=== PATIENT | male | born 1945 | race African-American/Black ===

== ENCOUNTER 2019-02-19 18:19 | Emergency (ER) | payer OTHER ==
[~2019-02-19] VITALS: Ht 175.3 cm; Wt 76.2 kg
[~2019-02-19 18:19] MED LIST: DOXA1TAB41 PO; LOSA-39 PO; OXYC-650 PO; PANC24002 PO
[2019-02-19 19:14] LABS: Basophils # (auto) 0.1 uL; Eosinophils # (auto) 0.3 uL; Eosinophils % (auto) 5.4 % (0.0-7.0); Hematocrit 45.2 % (41.0-53.0); Hemoglobin 15.3 g/dL (13.5-17.5); Lymphocytes # (auto) 1.6 uL; Lymphocytes % (auto) 26.8 % (10.0-50.0); Mean Corpuscular Hemoglobin 30.4 pg (28.0-32.0); Mean Corpuscular Hgb Conc. 33.8 g/dL (32.0-36.0); Monocytes # (auto) 0.4 uL; Monocytes % (auto) 6.4 % (0.0-12.0); Neutrophils # (auto) 3.6 uL; Neutrophils % (auto) 60.4 % (37.0-80.0); Nucleated Red Blood Cells % 0.2 %; Platelet Count (auto) 105 10^3/uL (140-450); Red Blood Cells 5.02 10^6/uL (4.5-5.90); Red Cell Distribution Width 14.2 % (11.8-14.3)
[2019-02-19 19:29] LABS: Albumin 3.9 g/dL (3.4-5.0); Calcium 9.6 mg/dL (8.5-10.1); Potassium 3.3 mmol/L (3.5-5.1)
[2019-02-19 19:32] LABS: BUN/Creatinine Ratio 16.4; Bilirubin, Total 0.4 mg/dL (0.2-1.0); Total Protein 7.6 g/dL (6.4-8.2)
[2019-02-19] MEDS ORDERED: SODIUM CHLORIDE 0.9% 1,000 ML IV ONE (22:15)
[2019-02-19] MEDS ORDERED: ONDANSETRON HCL 4 MG/2 ML VIAL IV ONE (22:15)
[2019-02-19] MEDS ORDERED: IOHEXOL 300 MG/ML 100ML BOTTLE IJ ONE (23:38)
[2019-02-20] MEDS ORDERED: HALOPERIDOL LACTATE 5 MG/ML INJ VIAL IM ONE (01:00)
[2019-02-20 02:25] VITALS: BP 159/93
== END 2019-02-20 02:54 | disposition home or self-care (01) ==
LOC: ER 18:21
DX: R11.15 Cyclical vomiting syndrome unrelated to migraine (principal); N40.0 Benign prostatic hyperplasia without lower urinary tract symptoms; N28.1 Cyst of kidney, acquired; R16.0 Hepatomegaly, not elsewhere classified; I10 Essential (primary) hypertension; Z90.49 Acquired absence of other specified parts of digestive tract; Z79.899 Other long term (current) drug therapy
CPT/HCPCS: 36415; 74177; 80053; 84484; 85025; 93005; 96361; 96374; 99284; J2405; J7030; Q9967

== ENCOUNTER 2019-05-23 08:32 | Emergency (ER) | payer OTHER ==
[~2019-05-23] VITALS: Ht 175.3 cm; Wt 76.2 kg
[2019-05-23 09:16] LABS: Urine Bacteria NONE SEEN /hpf (None Seen); Urine Blood Negative /uL (Negative); Urine Mucus FEW (None Seen); Urine WBC 1 /hpf (0 - 3)
[2019-05-23 09:30] LABS: Basophils # (auto) 0.1 uL; Basophils % (auto) 0.8 % (0.0-2.0); Eosinophils # (auto) 0 uL; Eosinophils % (auto) 0.6 % (0.0-7.0); Hematocrit 49.3 % (41.0-53.0); Hemoglobin 16.8 g/dL (13.5-17.5); Lymphocytes % (auto) 12.1 % (10.0-50.0); Mean Corpuscular Hemoglobin 30.1 pg (28.0-32.0); Mean Corpuscular Hgb Conc. 34.1 g/dL (32.0-36.0); Mean Corpuscular Volume 88.2 fL (80.0-100.0); Monocytes # (auto) 0.2 uL; Monocytes % (auto) 2.4 % (0.0-12.0); Neutrophils # (auto) 6.7 uL; Neutrophils % (auto) 84.1 % (37.0-80.0); Nucleated Red Blood Cells % 0.5 %; Platelet Count (auto) 130 10^3/uL (140-450); Red Blood Cells 5.59 10^6/uL (4.5-5.90); Red Cell Distribution Width 14.1 % (11.8-14.3); White Blood Cell 7.9 10^3/uL (4.4-10.8)
[2019-05-23 09:48] LABS: Albumin 3.7 g/dL (3.4-5.0); Anion Gap 9 (5-15); Blood Urea Nitrogen 13 mg/dL (7-18); Calcium 10.2 mg/dL (8.5-10.1); Carbon Dioxide 25 mmol/L (21-32); Chloride 104 mmol/L (98-107); Glucose 119 mg/dL (74-106); Potassium 3.5 mmol/L (3.5-5.1); Sodium 138 mmol/L (136-145)
[2019-05-23 09:53] LABS: Alanine Aminotransferase 83 U/L (16-61); Alkaline Phosphatase 119 U/L (45-117); Aspartate Aminotransferase 56 U/L (15-37); BUN/Creatinine Ratio 9.6; Bilirubin, Total 0.8 mg/dL (0.2-1.0); GFR African American 67 mL/min; GFR Non-African American 55 mL/min; Total Protein 8.5 g/dL (6.4-8.2)
[2019-05-23] MEDS ORDERED: cloNIDine HCL 0.1 MG TAB PO ONE (10:30)
[2019-05-23] MEDS ORDERED: KETOROLAC TROMETH 30 MG/ML 1ML VIAL IV ONE (12:15)
[2019-05-23] MEDS ORDERED: SODIUM CHLORIDE 0.9% 1,000 ML IV ONE (12:15)
[2019-05-23] MEDS ORDERED: TAMSULOSIN HYDROCHLORIDE 0.4 MG CAP PO ONE (12:15)
[2019-05-23 12:39] VITALS: BP 169/98
== END 2019-05-23 12:43 | disposition home or self-care (01) ==
LOC: ER 08:41
DX: N20.0 Calculus of kidney (principal); R10.13 Epigastric pain; I10 Essential (primary) hypertension
CPT/HCPCS: 36415; 71046; 74176; 80053; 81001; 84484; 85025; 93005; 96374; 99284; J1885; J7030

== ENCOUNTER 2019-10-23 08:36 | Inpatient (IN) | payer OTHER ==
[~2019-10-23] VITALS: Ht 205.7 cm; Wt 74.2 kg
[2019-10-23 10:35] LABS: Albumin 3.6 g/dL (3.4-5.0); Calcium 9.8 mg/dL (8.5-10.1); Potassium 3.1 mmol/L (3.5-5.1)
[2019-10-23 10:41] LABS: BUN/Creatinine Ratio 11.1; Bilirubin, Total 0.7 mg/dL (0.2-1.0); Total Protein 7.9 g/dL (6.4-8.2)
[2019-10-23] MEDS ORDERED: SODIUM CHLORIDE 0.9% 1,000 ML IVB ONE (11:37)
[2019-10-23] MEDS ORDERED: ONDANSETRON HCL 4 MG/2 ML VIAL IV ONE (11:45)
[2019-10-23 12:24] LABS: Basophils # (auto) 0 10 ^3/uL (0-0.2); Basophils % (auto) 0.7 % (0.0-2.0); Eosinophils # (auto) 0 10 ^3/uL (0-0.8); Eosinophils % (auto) 0.6 % (0.0-7.0); Hematocrit 44.4 % (41.0-53.0); Lymphocytes # (auto) 0.6 10 ^3/uL (0.4-5.4); Lymphocytes % (auto) 11.5 % (10.0-50.0); Mean Corpuscular Hemoglobin 29.6 pg (28.0-32.0); Mean Corpuscular Hgb Conc. 33.8 g/dL (32.0-36.0); Mean Corpuscular Volume 87.6 fL (80.0-100.0); Monocytes # (auto) 0.2 10 ^3/uL (0-1.3); Monocytes % (auto) 4.2 % (0.0-12.0); Neutrophils # (auto) 4.1 10 ^3/uL (1.6-8.6); Nucleated Red Blood Cells % 0.2 %; Platelet Count (auto) 153 10^3/uL (140-450); Red Blood Cells 5.08 10^6/uL (4.5-5.90); Red Cell Distribution Width 14.4 % (11.8-14.3)
[2019-10-23] MEDS ORDERED: MORPHINE SULF INJ 2 MG/ML SYRINGE 1ML IV ONE (12:30)
[2019-10-23] MEDS ORDERED: cefTRIAXone 1GM/50ML D5W 50 ML IV ONE (12:45)
[2019-10-23] MEDS ORDERED: metroNIDAZOLE 500MG/100ML 100 ML IV ONE (12:45)
[2019-10-23] MEDS: POTASSIUM CHL 20MEQ/100ML 100 ML IV SCH ×2 (14:05→16:39)
[2019-10-23] MEDS ORDERED: NITROGLYCERIN 0.4 MG SL TAB SL PRN (14:45)
[2019-10-23] MEDS ORDERED: MORPHINE SULF INJ 2 MG/ML SYRINGE 1ML IV PRN ×2 (14:45)
[2019-10-23] MEDS ORDERED: LABETALOL HCL 5 MG/ML 4ML SYRINGE IV PRN (14:45)
[2019-10-23] MEDS ORDERED: PROMETHAZINE HCL 25 MG/ML 1ML IV PRN (14:45)
[2019-10-23] MEDS ORDERED: DEXTROSE (50%) 50ML SYRG IV PRN (14:45)
[2019-10-23] MEDS: SODIUM CHLORIDE 0.9% 1,000 ML IV SCH ×2 (15:00→21:24)
[2019-10-23 17:47] VITALS: BP 176/93
[2019-10-23] MEDS: ACCU-CHEK COMFORT CURVE STRIP VI SCH (18:11)
[2019-10-23] MEDS: metroNIDAZOLE 500MG/100ML 100 ML IV SCH (21:23)
[2019-10-23] MEDS: FAMOTIDINE (10MG/ML) 2ML VL IV SCH (21:23)
[2019-10-23 22:00] VITALS: BP 150/84
[2019-10-24] MEDS: SODIUM CHLORIDE 0.9% 1,000 ML IV SCH ×4 (03:57→23:57)
[2019-10-24 05:00] VITALS: BP 153/91
[2019-10-24] MEDS: MORPHINE SULF INJ 2 MG/ML SYRINGE 1ML IV PRN ×2 (05:01→17:18)
[2019-10-24 05:54] LABS: Basophils # (auto) 0.1 10 ^3/uL (0-0.2); Basophils % (auto) 0.9 % (0.0-2.0); Eosinophils # (auto) 0 10 ^3/uL (0-0.8); Eosinophils % (auto) 0.3 % (0.0-7.0); Hematocrit 43.6 % (41.0-53.0); Hemoglobin 14.7 g/dL (13.5-17.5); Lymphocytes # (auto) 1.6 10 ^3/uL (0.4-5.4); Lymphocytes % (auto) 18.5 % (10.0-50.0); Mean Corpuscular Hemoglobin 29.4 pg (28.0-32.0); Mean Corpuscular Hgb Conc. 33.8 g/dL (32.0-36.0); Monocytes # (auto) 0.6 10 ^3/uL (0-1.3); Monocytes % (auto) 7.4 % (0.0-12.0); Neutrophils # (auto) 6.4 10 ^3/uL (1.6-8.6); Neutrophils % (auto) 72.9 % (37.0-80.0); Platelet Count (auto) 177 10^3/uL (140-450); Red Blood Cells 5.01 10^6/uL (4.5-5.90); Red Cell Distribution Width 14.3 % (11.8-14.3); White Blood Cell 8.8 10^3/uL (4.4-10.8)
[2019-10-24 06:17] LABS: Potassium 3.6 mmol/L (3.5-5.1)
[2019-10-24 06:23] LABS: Albumin 3.2 g/dL (3.4-5.0); BUN/Creatinine Ratio 13.2; Calcium 9.4 mg/dL (8.5-10.1)
[2019-10-24 06:26] LABS: Bilirubin, Total 0.8 mg/dL (0.2-1.0); Total Protein 7.6 g/dL (6.4-8.2)
[2019-10-24] MEDS: ACCU-CHEK COMFORT CURVE STRIP VI SCH ×4 (06:29→17:18)
[2019-10-24] MEDS: metroNIDAZOLE 500MG/100ML 100 ML IV SCH ×3 (06:31→22:15)
[2019-10-24 08:00] VITALS: BP 155/89
[2019-10-24 09:00] VITALS: BP 155/89
[2019-10-24] MEDS ORDERED: cloNIDine HCL 0.1 MG TAB PO PRN (09:15)
[2019-10-24 09:18] LABS: Urine Bacteria NONE SEEN /hpf (None Seen); Urine Blood Negative /uL (Negative); Urine Specific Gravity 1.016 (1.001-1.035); Urine WBC 2 /hpf (0 - 3)
[2019-10-24] MEDS: FAMOTIDINE (10MG/ML) 2ML VL IV SCH ×2 (10:50→22:15)
[2019-10-24] MEDS: cefTRIAXone 1GM/50ML D5W 50 ML IV SCH (10:50)
[2019-10-24] MEDS: oxyCODONE ER 10 MG TAB PO SCH ×2 (10:51→22:16)
[2019-10-24 13:00] VITALS: BP 167/96
[2019-10-24 17:00] VITALS: BP 127/81
[2019-10-24 22:00] VITALS: BP 162/74
[2019-10-25] MEDS: MORPHINE SULF INJ 2 MG/ML SYRINGE 1ML IV PRN ×5 (00:48→21:21)
[2019-10-25 05:22] VITALS: BP 146/86
[2019-10-25] MEDS: ACCU-CHEK COMFORT CURVE STRIP VI SCH ×4 (06:03→17:13)
[2019-10-25] MEDS: metroNIDAZOLE 500MG/100ML 100 ML IV SCH ×3 (06:04→22:48)
[2019-10-25] MEDS: SODIUM CHLORIDE 0.9% 1,000 ML IV SCH ×3 (06:48→20:43)
[2019-10-25 09:00] VITALS: BP 155/77
[2019-10-25] MEDS ORDERED: LACTULOSE 20Gm/30ML SOLN PO PRN (09:15)
[2019-10-25] MEDS ORDERED: LACTULOSE 20Gm/30ML SOLN PO ONE (09:15)
[2019-10-25] MEDS: FAMOTIDINE (10MG/ML) 2ML VL IV SCH ×2 (10:52→22:48)
[2019-10-25] MEDS: oxyCODONE ER 10 MG TAB PO SCH ×2 (10:53→22:48)
[2019-10-25] MEDS: cefTRIAXone 1GM/50ML D5W 50 ML IV SCH (10:54)
[2019-10-25 13:00] VITALS: BP 144/76
[2019-10-25 17:00] VITALS: BP 153/84
[2019-10-25 22:00] VITALS: BP 146/95
[2019-10-26] MEDS: ACCU-CHEK COMFORT CURVE STRIP VI SCH ×3 (01:01→11:53)
[2019-10-26] MEDS: SODIUM CHLORIDE 0.9% 1,000 ML IV SCH ×2 (04:57→09:17)
[2019-10-26] MEDS: MORPHINE SULF INJ 2 MG/ML SYRINGE 1ML IV PRN (04:58)
[2019-10-26 05:00] VITALS: BP 141/85
[2019-10-26] MEDS: metroNIDAZOLE 500MG/100ML 100 ML IV SCH (05:58)
[2019-10-26 06:42] LABS: Basophils # (auto) 0.1 10 ^3/uL (0-0.2); Basophils % (auto) 1.6 % (0.0-2.0); Eosinophils # (auto) 0.2 10 ^3/uL (0-0.8); Eosinophils % (auto) 4.1 % (0.0-7.0); Hematocrit 40.7 % (41.0-53.0); Lymphocytes # (auto) 1.6 10 ^3/uL (0.4-5.4); Lymphocytes % (auto) 32.1 % (10.0-50.0); Mean Corpuscular Hemoglobin 29.8 pg (28.0-32.0); Mean Corpuscular Hgb Conc. 34.3 g/dL (32.0-36.0); Mean Corpuscular Volume 86.8 fL (80.0-100.0); Monocytes # (auto) 0.6 10 ^3/uL (0-1.3); Monocytes % (auto) 11.1 % (0.0-12.0); Neutrophils # (auto) 2.6 10 ^3/uL (1.6-8.6); Neutrophils % (auto) 51.1 % (37.0-80.0); Nucleated Red Blood Cells % 0.1 %; Platelet Count (auto) 143 10^3/uL (140-450); Red Cell Distribution Width 14.3 % (11.8-14.3); White Blood Cell 5.1 10^3/uL (4.4-10.8)
[2019-10-26 07:02] LABS: Calcium 8.9 mg/dL (8.5-10.1); Potassium 3.2 mmol/L (3.5-5.1)
[2019-10-26] MEDS ORDERED: POTASSIUM EFFERVESENT TAB 25 MEQ PO ONE (09:15)
[2019-10-26] MEDS: cefTRIAXone 1GM/50ML D5W 50 ML IV SCH (09:16)
[2019-10-26] MEDS: oxyCODONE ER 10 MG TAB PO SCH (09:17)
[2019-10-26] MEDS: FAMOTIDINE (10MG/ML) 2ML VL IV SCH (09:17)
[2019-10-26 09:27] VITALS: BP 155/80
[2019-10-26 10:32] VITALS: BP 150/96
== END 2019-10-26 14:00 | disposition home or self-care (01) | DRG 391 ==
LOC: ER 08:36 → TELE 08:37 → TELE-CENTR 18:14
PROVIDERS: ADMIT Internal Medicine; ATTEND Internal Medicine
DX: K52.9 Noninfective gastroenteritis and colitis, unspecified (principal); K85.90 Acute pancreatitis without necrosis or infection, unspecified; F11.20 Opioid dependence, uncomplicated; K86.1 Other chronic pancreatitis; Z68.1 Body mass index [BMI] 19.9 or less, adult; E87.6 Hypokalemia; I16.0 Hypertensive urgency; R73.9 Hyperglycemia, unspecified; R63.6 Underweight; G89.4 Chronic pain syndrome; I11.9 Hypertensive heart disease without heart failure; F12.90 Cannabis use, unspecified, uncomplicated; Z96.611 Presence of right artificial shoulder joint; K59.00 Constipation, unspecified; N40.0 Benign prostatic hyperplasia without lower urinary tract symptoms; Z82.49 Family history of ischemic heart disease and other diseases of the circulatory system; Z90.49 Acquired absence of other specified parts of digestive tract
CPT/HCPCS: 36415; 71045; 74176; 80048; 80053; 81001; 82150; 82962; 83036; 83690; 83735; 83880; 84443; 84484; 85025; 93005; 96361; 96365; 96367; 96375; G0378; J0696; J2405; J3480; J3490

== ENCOUNTER 2019-11-11 00:15 | Inpatient (IN) | payer OTHER ==
[~2019-11-11] VITALS: Ht 175.3 cm; Wt 72.2 kg
[~2019-11-11 00:15] MED LIST changes: -LOSA-39 PO
[2019-11-11 02:46] LABS: Basophils # (auto) 0.1 10 ^3/uL (0-0.2); Basophils % (auto) 0.6 % (0.0-2.0); Eosinophils # (auto) 0 10 ^3/uL (0-0.8); Eosinophils % (auto) 0.6 % (0.0-7.0); Hematocrit 48.7 % (41.0-53.0); Hemoglobin 16.3 g/dL (13.5-17.5); Lymphocytes # (auto) 1.1 10 ^3/uL (0.4-5.4); Lymphocytes % (auto) 12.8 % (10.0-50.0); Mean Corpuscular Hemoglobin 29.6 pg (28.0-32.0); Mean Corpuscular Hgb Conc. 33.4 g/dL (32.0-36.0); Mean Corpuscular Volume 88.6 fL (80.0-100.0); Monocytes # (auto) 0.4 10 ^3/uL (0-1.3); Monocytes % (auto) 4.4 % (0.0-12.0); Neutrophils # (auto) 6.8 10 ^3/uL (1.6-8.6); Neutrophils % (auto) 81.6 % (37.0-80.0); Nucleated Red Blood Cells % 0.1 %; Platelet Count (auto) 128 10^3/uL (140-450); Red Blood Cells 5.49 10^6/uL (4.5-5.90); Red Cell Distribution Width 14.3 % (11.8-14.3); White Blood Cell 8.4 10^3/uL (4.4-10.8)
[2019-11-11 03:10] LABS: Albumin 3.8 g/dL (3.4-5.0); Anion Gap 6 (5-15); Blood Urea Nitrogen 20 mg/dL (7-18); Carbon Dioxide 24 mmol/L (21-32); Chloride 108 mmol/L (98-107); Glucose 138 mg/dL (74-106); Potassium 3.4 mmol/L (3.5-5.1); Sodium 138 mmol/L (136-145)
[2019-11-11 03:13] LABS: Alanine Aminotransferase 91 U/L (16-61); Aspartate Aminotransferase 61 U/L (15-37); BUN/Creatinine Ratio 15.4; GFR African American 70 mL/min; GFR Non-African American 58 mL/min
[2019-11-11 03:17] LABS: Amylase 140 U/L (25-115); Lactic Acid w/Reflex 2.3 mmol/L (0.4-2.0); Lipase 390 U/L (73-393)
[2019-11-11 03:18] LABS: Alkaline Phosphatase 93 U/L (45-117); Total Protein 8.4 g/dL (6.4-8.2)
[2019-11-11] MEDS ORDERED: SODIUM CHLORIDE 0.9% 1,000 ML IV ONE ×2 (04:27→08:15)
[2019-11-11] MEDS ORDERED: MORPHINE SULFATE 4 MG/ML SYR/VIAL IV ONE (04:45)
[2019-11-11] MEDS ORDERED: ONDANSETRON HCL 4 MG/2 ML VIAL IV ONE (04:45)
[2019-11-11 05:04] LABS: Urine Bacteria FEW /hpf (None Seen); Urine Blood Negative /uL (Negative); Urine Hyaline Cast FEW /lpf (0 - 2); Urine Mucus FEW (None Seen); Urine Specific Gravity 1.022 (1.001-1.035); Urine WBC 7 /hpf (0 - 3)
[2019-11-11] MEDS ORDERED: ACETAMINOPHEN 325 MG TAB PO ONE ×2 (05:15→10:30)
[2019-11-11] MEDS: PIPERACILLIN-TAZOB 3.375GM 100 ML IV SCH ×2 (05:31→12:07)
[2019-11-11] MEDS ORDERED: LABETALOL HCL 5 MG/ML 4ML SYRINGE IV ONE ×2 (06:30→06:45)
[2019-11-11 07:09] LABS: INR 1.03 (0.9-1.15); Partial Thromboplastin Time 26.3 sec (23.64-32.05)
[2019-11-11] MEDS ORDERED: cloNIDine HCL 0.1 MG TAB PO ONE (08:00)
[2019-11-11] MEDS ORDERED: IBUPROFEN 800 MG TAB PO ONE (08:15)
[2019-11-11] MEDS: SODIUM CHLORIDE 0.9% 1,000 ML IV SCH ×2 (08:42→18:44)
[2019-11-11] MEDS ORDERED: LABETALOL HCL 5 MG/ML 4ML SYRINGE IV PRN (08:45)
[2019-11-11] MEDS ORDERED: oxyCODONE ER 10 MG TAB PO PRN (08:45)
[2019-11-11] MEDS ORDERED: MORPHINE SULF INJ 2 MG/ML SYRINGE 1ML IV PRN (08:45)
[2019-11-11] MEDS ORDERED: ACETAMINOPHEN 500 MG TAB PO PRN (08:45)
[2019-11-11] MEDS ORDERED: NITROGLYCERIN 0.4 MG SL TAB SL PRN (08:45)
[2019-11-11] MEDS ORDERED: PROMETHAZINE HCL 25 MG/ML 1ML IV PRN (08:45)
[2019-11-11] MEDS: cefTRIAXone 1GM/50ML D5W 50 ML IV SCH (09:00)
[2019-11-11] MEDS: DOXAZOSIN MESYL 2 MG TAB PO SCH (10:00)
[2019-11-11] MEDS: VANCOMYCIN 1GM/250ML 250 ML IV SCH ×2 (10:00→22:30)
[2019-11-11] MEDS ORDERED: GOLYTELY 4L KIT PO ONE (10:45)
[2019-11-11] MEDS ORDERED: OXYC30TA50 PO (11:18)
[2019-11-11] MEDS: metroNIDAZOLE 500MG/100ML 100 ML IV SCH ×2 (14:09→22:30)
[2019-11-11] MEDS: MORPHINE SULFATE 10 MG/ML INJ 1ML SDV IV PRN ×2 (18:44→22:36)
[2019-11-11] MEDS ORDERED: FAMOTIDINE (10MG/ML) 2ML VL IV SCH (22:00)
[2019-11-11 23:50] VITALS: BP 139/86
--- NOTE | 2019-11-11 23:50 | NUR ---
arrival note pt arrived via stretcher. pt transferred self to hospital bed in 220B. respirations even and nonlabored on room air. pt is alert and oriented x4.
[2019-11-12] VITALS (7 sets, daily range): BP systolic 136–173; BP diastolic 83–94
--- NOTE | 2019-11-12 02:35 | NUR ---
pain c/o of right shoulder pain, and abdominal pain, 7/10. will administer ordered medication.
[2019-11-12] MEDS: MORPHINE SULFATE 10 MG/ML INJ 1ML SDV IV PRN ×3 (02:48→22:08)
--- NOTE | 2019-11-12 06:15 | NUR ---
[facility] SENT
[2019-11-12] MEDS: SODIUM CHLORIDE 0.9% 1,000 ML IV SCH ×2 (06:19→14:47)
[2019-11-12] MEDS: metroNIDAZOLE 500MG/100ML 100 ML IV SCH ×3 (06:19→21:51)
[2019-11-12 07:16] LABS: Basophils # (auto) 0.1 10 ^3/uL (0-0.2); Basophils % (auto) 1.3 % (0.0-2.0); Eosinophils # (auto) 0.2 10 ^3/uL (0-0.8); Eosinophils % (auto) 2.7 % (0.0-7.0); Hematocrit 40.8 % (41.0-53.0); Hemoglobin 13.7 g/dL (13.5-17.5); Lymphocytes # (auto) 2.5 10 ^3/uL (0.4-5.4); Lymphocytes % (auto) 31.6 % (10.0-50.0); Mean Corpuscular Hemoglobin 29.7 pg (28.0-32.0); Mean Corpuscular Hgb Conc. 33.6 g/dL (32.0-36.0); Mean Corpuscular Volume 88.2 fL (80.0-100.0); Monocytes # (auto) 0.5 10 ^3/uL (0-1.3); Monocytes % (auto) 6.2 % (0.0-12.0); Neutrophils # (auto) 4.6 10 ^3/uL (1.6-8.6); Neutrophils % (auto) 58.2 % (37.0-80.0); Nucleated Red Blood Cells % 0.2 %; Platelet Count (auto) 107 10^3/uL (140-450); Red Blood Cells 4.62 10^6/uL (4.5-5.90); White Blood Cell 7.9 10^3/uL (4.4-10.8)
--- NOTE | 2019-11-12 07:27 | NUR ---
closing note pt resting in semi fowlers with HOB at 30 degrees. respirations even nonlabored on room air. bed in low locked position, call light within reach.
--- NOTE | 2019-11-12 07:30 | NUR ---
Opening Shift Note Assumed care of patient, awake and alert. No S/S of distress/SOB. Pain reported. Pain management options discussed with patient. Instructed on POC and to call for assist PRN, will continue to monitor for changes Q1hr and PRN.
[2019-11-12 07:32] LABS: Albumin 3.1 g/dL (3.4-5.0); Calcium 8.8 mg/dL (8.5-10.1); Potassium 3.4 mmol/L (3.5-5.1)
[2019-11-12 07:36] LABS: BUN/Creatinine Ratio 13.2; Bilirubin, Total 1.1 mg/dL (0.2-1.0); Total Protein 6.7 g/dL (6.4-8.2)
[2019-11-12] MEDS: DOXAZOSIN MESYL 2 MG TAB PO SCH (10:16)
[2019-11-12] MEDS: VANCOMYCIN 1GM/250ML 250 ML IV SCH ×2 (10:16→23:05)
[2019-11-12] MEDS: cefTRIAXone 1GM/50ML D5W 50 ML IV SCH (10:16)
--- NOTE | 2019-11-12 11:19 | NUR ---
Off unit to procedure. no signs of distress noted during transfer.
[2019-11-12] MEDS ORDERED: LIDOCAINE 2% (LOCAL ANESTH.) PF 5ml SDV ONE (11:40)
[2019-11-12] MEDS ORDERED: PROPOFOL 10 MG/ML 20 ML IV ONE (11:40)
[2019-11-12] MEDS ORDERED: ONDANSETRON HCL 4 MG/2 ML VIAL ONE (11:40)
[2019-11-12] MEDS ORDERED: MIDAZOLAM HCL 1MG/1ML-2 ML VIAL ONE (11:40)
[2019-11-12] MEDS ORDERED: GLYCOPYRROLATE 0.2 MG/ML 1ML VIAL ONE (11:40)
[2019-11-12] MEDS ORDERED: fentaNYL CITRATE 100 MCG/2 ML VL ONE (12:30)
[2019-11-12] MEDS ORDERED: ONDANSETRON HCL 4 MG/2 ML VIAL IV PRN (12:45)
[2019-11-12] MEDS ORDERED: MORPHINE SULFATE 4 MG/ML SYR/VIAL IV PRN (12:45)
--- NOTE | 2019-11-12 13:00 | NUR ---
patient back to room. tolerated procedure well.
[2019-11-12] MEDS ORDERED: POTASSIUM EFFERVESENT TAB 25 MEQ PO ONE (16:15)
[2019-11-12] MEDS: oxyCODONE ER 10 MG TAB PO SCH (18:10)
[2019-11-12] MEDS: SUCRALFATE 1 GM/10 ML ORAL SUSP PO SCH ×2 (18:16→21:50)
[2019-11-12] MEDS: PANCREATIC ENZYMES 4200 UNIT CAP PO SCH (18:27)
[2019-11-12] MEDS ORDERED: LORazepam 2MG/ML-1ML VIAL IV PRN (19:30)
[2019-11-12] MEDS: PRIMIDONE 50 MG TAB PO SCH (21:50)
[2019-11-12] MEDS: PANTOPRAZOLE 40 MG TAB PO SCH (21:51)
[2019-11-13] MEDS: SODIUM CHLORIDE 0.9% 1,000 ML IV SCH ×2 (02:19→10:55)
[2019-11-13] MEDS: MORPHINE SULFATE 10 MG/ML INJ 1ML SDV IV PRN ×2 (04:41→14:54)
[2019-11-13 05:39] LABS: Basophils # (auto) 0.1 10 ^3/uL (0-0.2); Basophils % (auto) 1.3 % (0.0-2.0); Eosinophils # (auto) 0.2 10 ^3/uL (0-0.8); Eosinophils % (auto) 4.4 % (0.0-7.0); Hemoglobin 13.2 g/dL (13.5-17.5); Lymphocytes # (auto) 2.1 10 ^3/uL (0.4-5.4); Lymphocytes % (auto) 39.3 % (10.0-50.0); Mean Corpuscular Hemoglobin 30.1 pg (28.0-32.0); Mean Corpuscular Hgb Conc. 34.8 g/dL (32.0-36.0); Mean Corpuscular Volume 86.6 fL (80.0-100.0); Monocytes # (auto) 0.4 10 ^3/uL (0-1.3); Monocytes % (auto) 7.2 % (0.0-12.0); Neutrophils # (auto) 2.5 10 ^3/uL (1.6-8.6); Neutrophils % (auto) 47.8 % (37.0-80.0); Nucleated Red Blood Cells % 0.1 %; Platelet Count (auto) 96 10^3/uL (140-450); Red Blood Cells 4.38 10^6/uL (4.5-5.90); Red Cell Distribution Width 14.1 % (11.8-14.3); White Blood Cell 5.3 10^3/uL (4.4-10.8)
[2019-11-13 06:00] VITALS: BP_SYST 128; BP_SYST 148; BP_DIAS 57; BP_DIAS 81
[2019-11-13 06:02] LABS: Potassium 3.3 mmol/L (3.5-5.1)
[2019-11-13 06:05] LABS: BUN/Creatinine Ratio 10.9
[2019-11-13] MEDS: metroNIDAZOLE 500MG/100ML 100 ML IV SCH ×3 (06:07→21:52)
[2019-11-13] MEDS: SUCRALFATE 1 GM/10 ML ORAL SUSP PO SCH ×4 (06:07→21:54)
--- NOTE | 2019-11-13 07:30 | NUR ---
Opening Shift Note Assumed care of patient, awake and alert. No S/S of distress/SOB or pain. Instructed on POC and to call for assist PRN, will continue to monitor for changes Q1hr and PRN.
[2019-11-13 08:00] VITALS: BP 118/66
[2019-11-13] MEDS: PANCREATIC ENZYMES 4200 UNIT CAP PO SCH ×3 (08:00→18:10)
[2019-11-13 09:00] VITALS: BP 118/66
[2019-11-13] MEDS: cefTRIAXone 1GM/50ML D5W 50 ML IV SCH (09:51)
[2019-11-13] MEDS: oxyCODONE ER 10 MG TAB PO SCH ×2 (09:52→21:56)
[2019-11-13] MEDS: PANTOPRAZOLE 40 MG TAB PO SCH ×2 (09:52→21:54)
[2019-11-13] MEDS: DOXAZOSIN MESYL 2 MG TAB PO SCH (09:52)
[2019-11-13] MEDS: VANCOMYCIN 1GM/250ML 250 ML IV SCH ×2 (10:55→21:51)
[2019-11-13] MEDS ORDERED: POTASSIUM EFFERVESENT TAB 25 MEQ PO ONE (12:15)
[2019-11-13 13:00] VITALS: BP 138/72
--- NOTE | 2019-11-13 15:28 | NUR ---
Nutrition Assessment Notes Please refer to link for full assessment notes. Est Energy needs: 4683-2496 kcals (20-23 kcal/kgBW) Est Protein needs: 72-80 gms/day (1.0-1.1 gm/kgBW) Will continue to monitor and reassess prn. Addendum: 11/13/19 at [address] Amended: Links added.
[2019-11-13 17:00] VITALS: BP 133/78
--- NOTE | 2019-11-13 20:00 | NUR ---
Opening Shift Note Assumed care of patient, awake and alert. No S/S of distress/SOB or pain. Patient safety measures in place bed in lowest position, side rails up x2, and call light within reach. Instructed on POC and to call for assist PRN, will continue to monitor for changes Q1hr and PRN.
[2019-11-13] MEDS: PRIMIDONE 50 MG TAB PO SCH (21:54)
[2019-11-13 22:00] VITALS: BP 147/72
[2019-11-14] MEDS: MORPHINE SULFATE 10 MG/ML INJ 1ML SDV IV PRN ×4 (00:21→18:14)
[2019-11-14 05:00] VITALS: BP 140/85
[2019-11-14] MEDS: SODIUM CHLORIDE 0.9% 1,000 ML IV SCH ×3 (05:20→16:58)
[2019-11-14] MEDS: metroNIDAZOLE 500MG/100ML 100 ML IV SCH ×3 (06:28→21:54)
[2019-11-14] MEDS: SUCRALFATE 1 GM/10 ML ORAL SUSP PO SCH ×4 (06:29→21:55)
--- NOTE | 2019-11-14 07:30 | NUR ---
Opening Shift Note Assumed care of patient, awake and alert. No S/S of distress/SOB. Pain management plan discussed with patient. Instructed on POC and to call for assist PRN, will continue to monitor for changes Q1hr and PRN.
[2019-11-14 08:00] VITALS: BP 140/82
[2019-11-14] MEDS: PANCREATIC ENZYMES 4200 UNIT CAP PO SCH ×3 (08:06→18:12)
[2019-11-14 08:20] LABS: Basophils # (auto) 0 10 ^3/uL (0-0.2); Basophils % (auto) 1.1 % (0.0-2.0); Eosinophils # (auto) 0.3 10 ^3/uL (0-0.8); Eosinophils % (auto) 6.3 % (0.0-7.0); Hematocrit 39.6 % (41.0-53.0); Hemoglobin 13.6 g/dL (13.5-17.5); Lymphocytes # (auto) 1.3 10 ^3/uL (0.4-5.4); Lymphocytes % (auto) 30.5 % (10.0-50.0); Mean Corpuscular Hgb Conc. 34.3 g/dL (32.0-36.0); Mean Corpuscular Volume 87.7 fL (80.0-100.0); Monocytes # (auto) 0.4 10 ^3/uL (0-1.3); Monocytes % (auto) 8.6 % (0.0-12.0); Neutrophils # (auto) 2.3 10 ^3/uL (1.6-8.6); Neutrophils % (auto) 53.5 % (37.0-80.0); Platelet Count (auto) 95 10^3/uL (140-450); Red Blood Cells 4.51 10^6/uL (4.5-5.90); Red Cell Distribution Width 13.8 % (11.8-14.3); White Blood Cell 4.3 10^3/uL (4.4-10.8)
[2019-11-14 08:44] LABS: Calcium 9.1 mg/dL (8.5-10.1); Potassium 3.2 mmol/L (3.5-5.1)
[2019-11-14 08:46] LABS: BUN/Creatinine Ratio 8.4
[2019-11-14 09:00] VITALS: BP 140/82
[2019-11-14] MEDS: PANTOPRAZOLE 40 MG TAB PO SCH ×2 (10:13→21:56)
[2019-11-14] MEDS: cefTRIAXone 1GM/50ML D5W 50 ML IV SCH (10:13)
[2019-11-14] MEDS: oxyCODONE ER 10 MG TAB PO SCH ×2 (10:13→21:56)
[2019-11-14] MEDS: DOXAZOSIN MESYL 2 MG TAB PO SCH (10:13)
[2019-11-14] MEDS: VANCOMYCIN 1GM/250ML 250 ML IV SCH ×2 (11:50→21:54)
[2019-11-14 13:00] VITALS: BP 158/85
[2019-11-14] MEDS ORDERED: POTASSIUM EFFERVESENT TAB 25 MEQ PO ONE (15:00)
[2019-11-14 17:00] VITALS: BP 160/95
--- NOTE | 2019-11-14 19:25 | NUR ---
Opening Shift Note Assumed care of patient, awake and alert. No S/S of distress/SOB or pain. Safety measures in place bed in lowest position, side rails up x2, call light within reach, and fall alarm on. Instructed on POC and to call for assist PRN, will continue to monitor for changes Q1hr and PRN.
[2019-11-14 20:19] LABS: BUN/Creatinine Ratio 5.1; Calcium 8.9 mg/dL (8.5-10.1); Potassium 3.1 mmol/L (3.5-5.1)
[2019-11-14] MEDS: PRIMIDONE 50 MG TAB PO SCH (21:55)
[2019-11-14] MEDS: TEMAZEPAM 15 MG CAP PO PRN (23:10)
[2019-11-15] MEDS: SODIUM CHLORIDE 0.9% 1,000 ML IV SCH ×3 (00:01→22:42)
[2019-11-15 00:33] VITALS: BP 158/81
[2019-11-15 05:49] VITALS: BP 143/83
[2019-11-15] MEDS: metroNIDAZOLE 500MG/100ML 100 ML IV SCH ×3 (06:05→21:30)
[2019-11-15] MEDS: SUCRALFATE 1 GM/10 ML ORAL SUSP PO SCH ×4 (06:09→21:30)
[2019-11-15 07:08] LABS: Basophils # (auto) 0 10 ^3/uL (0-0.2); Basophils % (auto) 1.2 % (0.0-2.0); Eosinophils # (auto) 0.3 10 ^3/uL (0-0.8); Eosinophils % (auto) 8.3 % (0.0-7.0); Hemoglobin 13.9 g/dL (13.5-17.5); Lymphocytes # (auto) 1.4 10 ^3/uL (0.4-5.4); Mean Corpuscular Hemoglobin 29.6 pg (28.0-32.0); Mean Corpuscular Volume 87.1 fL (80.0-100.0); Monocytes # (auto) 0.4 10 ^3/uL (0-1.3); Monocytes % (auto) 10.9 % (0.0-12.0); Neutrophils # (auto) 1.7 10 ^3/uL (1.6-8.6); Neutrophils % (auto) 44.6 % (37.0-80.0); Nucleated Red Blood Cells % 0.4 %; Platelet Count (auto) 102 10^3/uL (140-450); Red Blood Cells 4.71 10^6/uL (4.5-5.90); Red Cell Distribution Width 13.8 % (11.8-14.3); White Blood Cell 3.9 10^3/uL (4.4-10.8)
[2019-11-15 07:28] LABS: Potassium 3.2 mmol/L (3.5-5.1)
[2019-11-15 07:32] LABS: BUN/Creatinine Ratio 5.3; Calcium 9.7 mg/dL (8.5-10.1)
[2019-11-15] MEDS: PANCREATIC ENZYMES 4200 UNIT CAP PO SCH ×3 (08:00→18:00)
[2019-11-15] MEDS: cefTRIAXone 1GM/50ML D5W 50 ML IV SCH (08:26)
[2019-11-15] MEDS: MORPHINE SULFATE 10 MG/ML INJ 1ML SDV IV PRN ×3 (08:47→19:17)
[2019-11-15 09:00] VITALS: BP 166/87
[2019-11-15] MEDS: VANCOMYCIN 1GM/250ML 250 ML IV SCH ×2 (10:25→23:18)
[2019-11-15] MEDS: DOXAZOSIN MESYL 2 MG TAB PO SCH (10:26)
[2019-11-15] MEDS: oxyCODONE ER 10 MG TAB PO SCH ×2 (10:26→21:30)
[2019-11-15] MEDS: PANTOPRAZOLE 40 MG TAB PO SCH ×2 (10:27→21:30)
[2019-11-15 13:00] VITALS: BP 168/90
[2019-11-15] MEDS ORDERED: POTASSIUM EFFERVESENT TAB 25 MEQ PO ONE (14:00)
--- NOTE | 2019-11-15 15:59 | NUR ---
Nutrition Followup Note Wt 72.3kg Pt was alert and oriented at time of rounds. Pt was scheduled for MRI and Barium Enema, unable to complete per Radiology note. Pt is scheduled to have these tests done soon, pt to be NPO for this. Pt with inadequate po intake d/t NPO orders and Clear Liquid diet orders, pt with 100% po intake of CLD when ordered. Will continue to monitor pt po status Est Energy needs: 7675-9390 kcals (20-23 kcal/kgBW) Est Protein needs: 72-80 gms/day (1.0-1.1 gm/kgBW) Will continue to monitor and reassess prn. Lab: BUN 6L, Alb 3.1L BM 1 BM 11/14 per RN doc Skin: BS 19 low risk full details in clinical manager home care doc PES: Altered nutrition related lab values r/t current medical condition aeb hypokalemia, hyperchloremia, elev bili, elev LFTs, mild hypoalbuminemia Comments Will continue to closely monitor pertinent labs, PO intake, skin status and weight trends. Will f/u in 2-3 days 1) Continue to closely monitor pt PO intake to meet at least 75% of meals 2) Gradually advance pt to oral diet when medically feasible and as tolerated 3) Continue current plan of care Expected Outcomes/Goals: Pt to advance to a solid diet Pt labs to improve Pt appetite to improve
[2019-11-15 17:00] VITALS: BP 149/85
--- NOTE | 2019-11-15 19:30 | NUR ---
Opening Shift Note Assumed care of patient, awake and alert. No S/S of distress/SOB or pain. Instructed on POC and to be NPO after MN, for barium enema tomorrow. Instructed to call for assist PRN, patient verbalized understanding. Safety precaution in place, call light within reach, will continue to monitor for changes Q1hr and PRN.
--- NOTE | 2019-11-15 20:45 | NUR ---
IV leaking on RH, removed with catheter intact, patient tolerated well. IV insertion IV access obtained, via clean sterile technique by inserting 22 gauge catheter at LFA after [1] attempt(s). IV secured properly. No trauma to site. Patient tolerated procedure well.
[2019-11-15] MEDS: PRIMIDONE 50 MG TAB PO SCH (21:30)
[2019-11-15 22:00] VITALS: BP 132/87
[2019-11-15] MEDS: TEMAZEPAM 15 MG CAP PO PRN (23:18)
[2019-11-16 05:00] VITALS: BP 154/87
[2019-11-16 05:36] LABS: Basophils # (auto) 0 10 ^3/uL (0-0.2); Basophils % (auto) 0.9 % (0.0-2.0); Eosinophils # (auto) 0.5 10 ^3/uL (0-0.8); Eosinophils % (auto) 10.7 % (0.0-7.0); Hematocrit 39.1 % (41.0-53.0); Hemoglobin 13.3 g/dL (13.5-17.5); Lymphocytes # (auto) 1.6 10 ^3/uL (0.4-5.4); Lymphocytes % (auto) 37.3 % (10.0-50.0); Mean Corpuscular Hemoglobin 29.7 pg (28.0-32.0); Mean Corpuscular Volume 87.3 fL (80.0-100.0); Monocytes # (auto) 0.5 10 ^3/uL (0-1.3); Monocytes % (auto) 11.7 % (0.0-12.0); Neutrophils # (auto) 1.7 10 ^3/uL (1.6-8.6); Neutrophils % (auto) 39.4 % (37.0-80.0); Nucleated Red Blood Cells % 0.1 %; Platelet Count (auto) 108 10^3/uL (140-450); Red Blood Cells 4.48 10^6/uL (4.5-5.90); Red Cell Distribution Width 13.9 % (11.8-14.3); White Blood Cell 4.3 10^3/uL (4.4-10.8)
[2019-11-16 05:57] LABS: BUN/Creatinine Ratio 5.7; Calcium 9.2 mg/dL (8.5-10.1)
[2019-11-16] MEDS: metroNIDAZOLE 500MG/100ML 100 ML IV SCH ×2 (06:00→14:40)
[2019-11-16] MEDS: SUCRALFATE 1 GM/10 ML ORAL SUSP PO SCH ×2 (06:01→09:38)
[2019-11-16] MEDS: PANCREATIC ENZYMES 4200 UNIT CAP PO SCH ×2 (08:00→12:00)
[2019-11-16] MEDS: SODIUM CHLORIDE 0.9% 1,000 ML IV SCH (08:42)
[2019-11-16] MEDS: oxyCODONE ER 10 MG TAB PO SCH (09:37)
[2019-11-16] MEDS: cefTRIAXone 1GM/50ML D5W 50 ML IV SCH (09:37)
[2019-11-16] MEDS: DOXAZOSIN MESYL 2 MG TAB PO SCH (09:37)
[2019-11-16] MEDS: PANTOPRAZOLE 40 MG TAB PO SCH (09:38)
[2019-11-16 10:00] VITALS: BP 158/91
[2019-11-16] MEDS: VANCOMYCIN 1GM/250ML 250 ML IV SCH (10:29)
[2019-11-16] MEDS ORDERED: LIQUID POLIBAR PLUS 105% (BARIUM SULF) 1900ML ONE (10:48)
[2019-11-16 12:34] VITALS: BP 152/75
[2019-11-16 16:27] VITALS: BP 152/73
[2019-11-16 16:49] VITALS: BP 150/86
--- NOTE | 2019-11-16 17:28 | NUR ---
DISCHARGE INSTRUCTIONS PROVIDED TO PT. PT VERBALIZED UNDERSTANDING FOR PRESCRIPTION ORDERS AND FOLLOW UP APPOINTMENT WITH PRIMARY CARE PHYSICIAN. EDUCATIONAL MATERIAL PROVIDED, ALL QUESTIONS AND CONCERNS ADDRESSED. IV CATHATER DC'D, CATHETER INTACT, NO PHLEBITIS. TELE BOX REMOVED AND RETURNED TO TELE DEPT. PT SAFELY ESCORTED OUT OF UNIT VIA WHEELCHAIR. NO S/S OF DISTRESS.
== END 2019-11-16 17:30 | disposition home or self-care (01) | DRG 872 ==
LOC: ER 00:16 → TELE 00:17 → TELE-CENTR 23:32
PROVIDERS: ADMIT Internal Medicine; ATTEND Internal Medicine
PROC: 0DB68ZX Excision of Stomach, Via Natural or Artificial Opening Endoscopic, Diagnostic (ICD-10-PCS; principal; 2019-11-12 11:49)
PROC: 0DJD8ZZ Inspection of Lower Intestinal Tract, Via Natural or Artificial Opening Endoscopic (ICD-10-PCS; 2019-11-12 11:49)
DX: A41.9 Sepsis, unspecified organism (principal); K86.1 Other chronic pancreatitis; F11.20 Opioid dependence, uncomplicated; K26.9 Duodenal ulcer, unspecified as acute or chronic, without hemorrhage or perforation; K29.80 Duodenitis without bleeding; N34.2 Other urethritis; K29.70 Gastritis, unspecified, without bleeding; K52.9 Noninfective gastroenteritis and colitis, unspecified; G89.4 Chronic pain syndrome; I16.0 Hypertensive urgency; N20.0 Calculus of kidney; E87.6 Hypokalemia; G25.0 Essential tremor; N40.0 Benign prostatic hyperplasia without lower urinary tract symptoms; I70.0 Atherosclerosis of aorta; Z96.611 Presence of right artificial shoulder joint; F12.90 Cannabis use, unspecified, uncomplicated; N48.1 Balanitis; K57.90 Diverticulosis of intestine, part unspecified, without perforation or abscess without bleeding; N47.8 Other disorders of prepuce; I10 Essential (primary) hypertension; Z20.828 Contact with and (suspected) exposure to other viral communicable diseases; Z90.49 Acquired absence of other specified parts of digestive tract; Z82.49 Family history of ischemic heart disease and other diseases of the circulatory system; Z91.14 Patient's other noncompliance with medication regimen; Z79.899 Other long term (current) drug therapy
CPT/HCPCS: 36415; 36600; 70551; 71045; 74176; 74280; 80048; 80053; 81001; 82150; 82378; 82553; 82805; 83605; 83690; 83880; 84484; 85025; 85379; 85610; 85652; 85730; 86141; 86850; 86900; 86901; 87040; 87081; 87086; 93005; G0378; J0696; J2001; J2250; J2405; J2543; J2704; J3490

== ENCOUNTER 2020-03-28 09:23 | Emergency (ER) | payer OTHER ==
[~2020-03-28] VITALS: Ht 175.3 cm; Wt 74.8 kg
[~2020-03-28 09:23] MED LIST changes: -OXYC-650 PO; +OXYC30TA50 PO; -PANC24002 PO
[2020-03-28] MEDS ORDERED: SODIUM CHLORIDE 0.9% 1,000 ML IV ONE ×2 (10:15)
[2020-03-28 10:24] LABS: Basophils # (auto) 0 10 ^3/uL (0-0.2); Basophils % (auto) 0.4 % (0.0-2.0); Eosinophils # (auto) 0 10 ^3/uL (0-0.8); Eosinophils % (auto) 0.3 % (0.0-7.0); Hemoglobin 15.4 g/dL (13.5-17.5); Lymphocytes # (auto) 0.7 10 ^3/uL (0.4-5.4); Lymphocytes % (auto) 12.3 % (10.0-50.0); Mean Corpuscular Hemoglobin 29.6 pg (28.0-32.0); Mean Corpuscular Hgb Conc. 33.4 g/dL (32.0-36.0); Mean Corpuscular Volume 88.6 fL (80.0-100.0); Monocytes # (auto) 0.2 10 ^3/uL (0-1.3); Monocytes % (auto) 2.8 % (0.0-12.0); Neutrophils # (auto) 4.8 10 ^3/uL (1.6-8.6); Neutrophils % (auto) 84.2 % (37.0-80.0); Nucleated Red Blood Cells % 0.3 %; Platelet Count (auto) 115 10^3/uL (140-450); Red Blood Cells 5.19 10^6/uL (4.5-5.90); Red Cell Distribution Width 14.4 % (11.8-14.3); White Blood Cell 5.7 10^3/uL (4.4-10.8)
[2020-03-28] MEDS ORDERED: cloNIDine HCL 0.1 MG TAB PO ONE (10:30)
[2020-03-28 12:11] LABS: Alkaline Phosphatase 111 U/L (45-117); Anion Gap 7 (5-15); BUN/Creatinine Ratio 14.7; Blood Urea Nitrogen 19 mg/dL (7-18); Carbon Dioxide 26 mmol/L (21-32); Chloride 101 mmol/L (98-107); GFR African American 70 mL/min; GFR Non-African American 58 mL/min; Glucose 121 mg/dL (74-106); Potassium 3.6 mmol/L (3.5-5.1); Sodium 134 mmol/L (136-145)
[2020-03-28 12:12] LABS: Alanine Aminotransferase 49 U/L (16-61); Albumin 3.9 g/dL (3.4-5.0); Aspartate Aminotransferase 36 U/L (15-37); Bilirubin, Total 0.7 mg/dL (0.2-1.0); Calcium 10.2 mg/dL (8.5-10.1); Total Protein 8.3 g/dL (6.4-8.2)
[2020-03-28] MEDS ORDERED: KETOROLAC TROMETH 30 MG/ML 1ML VIAL IV ONE (12:30)
[2020-03-28] MEDS ORDERED: ONDANSETRON HCL 4 MG/2 ML VIAL IV ONE (12:30)
[2020-03-28 13:02] LABS: Urine Bacteria NONE SEEN /hpf (None Seen); Urine Blood Negative /uL (Negative); Urine Specific Gravity 1.019 (1.001-1.035); Urine WBC 3 /hpf (0 - 3)
[2020-03-28 13:22] VITALS: BP 175/95
[2020-03-28] MEDS ORDERED: HYDROcodone-ACET 10/325MG TAB PO ONE (14:45)
== END 2020-03-28 14:51 | disposition home or self-care (01) ==
LOC: EDUNIT# 09:23 → ER 09:23 → EDBD 09:23 → ER 14:51
DX: N20.0 Calculus of kidney (principal); N39.0 Urinary tract infection, site not specified; I10 Essential (primary) hypertension; Z90.49 Acquired absence of other specified parts of digestive tract
CPT/HCPCS: 36415; 71045; 74176; 80053; 81001; 84484; 85025; 96361; 96374; 96375; 99285; J1885; J2405; J7030

== ENCOUNTER 2020-07-04 11:37 | Inpatient (IN) | payer OTHER ==
[~2020-07-04] VITALS: Ht 175.3 cm; Wt 80.9 kg
[2020-07-04] MEDS ORDERED: DONNATAL 5ml ORAL Elix (BELLADONNA ALK-PHENOBARB) PO ONE (12:00)
[2020-07-04] MEDS ORDERED: LIDOCAINE VISCOUS 2% 15ML UD PO ONE (12:00)
[2020-07-04] MEDS ORDERED: ALUM & MAG HYDROX-SIMETH LIQ(MAALOX) 30 ML PO ONE (12:00)
[2020-07-04] MEDS ORDERED: cloNIDine HCL 0.1 MG TAB PO ONE (12:30)
[2020-07-04 13:20] LABS: Basophils # (auto) 0.1 10 ^3/uL (0-0.2); Basophils % (auto) 0.6 % (0.0-2.0); Eosinophils # (auto) 0.1 10 ^3/uL (0-0.8); Eosinophils % (auto) 0.5 % (0.0-7.0); Hematocrit 46.9 % (41.0-53.0); Hemoglobin 16.3 g/dL (13.5-17.5); Lymphocytes # (auto) 1.9 10 ^3/uL (0.4-5.4); Lymphocytes % (auto) 17.7 % (10.0-50.0); Mean Corpuscular Hemoglobin 30.1 pg (28.0-32.0); Mean Corpuscular Hgb Conc. 34.7 g/dL (32.0-36.0); Mean Corpuscular Volume 86.9 fL (80.0-100.0); Monocytes # (auto) 0.9 10 ^3/uL (0-1.3); Monocytes % (auto) 8.5 % (0.0-12.0); Neutrophils % (auto) 72.7 % (37.0-80.0); Nucleated Red Blood Cells % 0.2 %; Platelet Count (auto) 151 10^3/uL (140-450); Red Blood Cells 5.39 10^6/uL (4.5-5.90); Red Cell Distribution Width 13.7 % (11.8-14.3)
[2020-07-04 13:40] LABS: Albumin 3.8 g/dL (3.4-5.0); Calcium 10.6 mg/dL (8.5-10.1); Potassium 3.6 mmol/L (3.5-5.1)
[2020-07-04 13:43] LABS: BUN/Creatinine Ratio 18.3; Total Protein 8.8 g/dL (6.4-8.2)
[2020-07-04] MEDS ORDERED: PIPERACILLIN-TAZOB 3.375GM 100 ML IV ONE (14:30)
[2020-07-04] MEDS ORDERED: SODIUM CHLORIDE 0.9% 1,000 ML IV ONE (14:30)
[2020-07-04] MEDS ORDERED: NITROGLYCERIN 0.4 MG SL TAB SL PRN ×2 (14:45→15:15)
[2020-07-04] MEDS ORDERED: MORPHINE SULF INJ 2 MG/ML SYRINGE 1ML IV PRN ×2 (14:45→15:15)
[2020-07-04 15:10] LABS: Lactic Acid w/Reflex 2.1 mmol/L (0.4-2.0)
[2020-07-04] MEDS ORDERED: ALUM & MAG HYDROX-SIMETH LIQ(MAALOX) 30 ML PO PRN (15:15)
[2020-07-04] MEDS ORDERED: ONDANSETRON HCL 4 MG/2 ML VIAL IV PRN (15:15)
[2020-07-04] MEDS ORDERED: LACTATED RINGER'S 1,000 ML IV ONE (15:15)
[2020-07-04] MEDS: SODIUM CHLORIDE 0.9% 1,000 ML IV SCH (15:15)
[2020-07-04] MEDS ORDERED: DOCUSATE SOD 100 MG CAP PO PRN (15:15)
[2020-07-04] MEDS ORDERED: SUCRALFATE 1 GM/10 ML ORAL SUSP PO ONE (15:30)
[2020-07-04] MEDS ORDERED: PANTOPRAZOLE 40 MG/10 ML VIAL INJ IV ONE (15:30)
[2020-07-04] MEDS ORDERED: TAMS0.4C36 PO (15:36)
[2020-07-04] MEDS ORDERED: SUCR1TAB PO (15:36)
[2020-07-04] MEDS ORDERED: PANT40TA2 PO (15:36)
[2020-07-04] MEDS ORDERED: PRIM50TA5 PO (15:36)
[2020-07-04] MEDS ORDERED: [UNRECOGNIZED DRUG - CODE] PO (15:39)
[2020-07-04] MEDS ORDERED: OXYC15TA48 PO (15:45)
[2020-07-04] MEDS ORDERED: LOSA-69 PO (15:51)
[2020-07-04 16:20] LABS: Urine Bacteria NONE SEEN /hpf (None Seen); Urine Blood Negative /uL (Negative); Urine Mucus FEW (None Seen); Urine Specific Gravity 1.017 (1.001-1.035); Urine WBC 1 /hpf (0 - 3)
[2020-07-04 16:35] LABS: Alcohol, Urine < 3.0 mg/dL (0-10); Amphetamine Screen, Urine NEGATIVE (NEGATIVE); Barbiturate Scree,Urine NEGATIVE (NEGATIVE); Benzodiazephine Screen, Urine NEGATIVE (NEGATIVE); Cannabinoid Screen, Urine POSITIVE (NEGATIVE); Cocaine Screen, Urine NEGATIVE (NEGATIVE); Opiate Scree,Urine NEGATIVE (NEGATIVE); Phencyclidine Screen, Urine NEGATIVE (NEGATIVE)
[2020-07-04] MEDS: MORPHINE SULF INJ 2 MG/ML SYRINGE 1ML IV PRN ×2 (17:24→23:52)
[2020-07-04] MEDS: hydrALAZINE HCL 20 MG/ML VL IV PRN (18:00)
[2020-07-04] MEDS ORDERED: cefTRIAXone 1GM/50ML D5W 50 ML IV ONE (18:00)
[2020-07-04] MEDS: ACETAMINOPHEN 325 MG TAB PO PRN (19:25)
[2020-07-04] MEDS ORDERED: metroNIDAZOLE 500MG/100ML 100 ML IV ONE (20:00)
[2020-07-04] MEDS: HYDROcodone-ACET 5/325MG TAB PO PRN (21:01)
[2020-07-04] MEDS: PRIMIDONE 50 MG TAB PO SCH (21:54)
[2020-07-04] MEDS: SUCRALFATE 1 GM/10 ML ORAL SUSP PO SCH (22:00)
[2020-07-04 23:20] VITALS: BP 139/83
[2020-07-05] MEDS: ACETAMINOPHEN 325 MG TAB PO PRN (04:43)
[2020-07-05 05:00] VITALS: BP 155/88
[2020-07-05] MEDS: hydrALAZINE HCL 20 MG/ML VL IV PRN (05:02)
[2020-07-05] MEDS: SODIUM CHLORIDE 0.9% 1,000 ML IV SCH ×2 (07:03→21:04)
[2020-07-05] MEDS: SUCRALFATE 1 GM/10 ML ORAL SUSP PO SCH ×4 (07:03→22:32)
[2020-07-05] MEDS: metroNIDAZOLE 500MG/100ML 100 ML IV SCH ×3 (07:03→22:40)
[2020-07-05 07:28] LABS: Basophils # (auto) 0.1 10 ^3/uL (0-0.2); Basophils % (auto) 0.6 % (0.0-2.0); Eosinophils # (auto) 0 10 ^3/uL (0-0.8); Eosinophils % (auto) 0.6 % (0.0-7.0); Hemoglobin 15.1 g/dL (13.5-17.5); Lymphocytes % (auto) 24.4 % (10.0-50.0); Mean Corpuscular Hemoglobin 30.3 pg (28.0-32.0); Mean Corpuscular Hgb Conc. 34.5 g/dL (32.0-36.0); Monocytes # (auto) 0.7 10 ^3/uL (0-1.3); Neutrophils # (auto) 5.3 10 ^3/uL (1.6-8.6); Neutrophils % (auto) 65.4 % (37.0-80.0); Nucleated Red Blood Cells % 0.2 %; Platelet Count (auto) 144 10^3/uL (140-450); Red Cell Distribution Width 14.1 % (11.8-14.3); White Blood Cell 8.2 10^3/uL (4.4-10.8)
[2020-07-05 07:39] LABS: Albumin 3.2 g/dL (3.4-5.0); Calcium 9.3 mg/dL (8.5-10.1); Magnesium 2.5 mg/dL (1.6-2.6); Potassium 3.4 mmol/L (3.5-5.1)
[2020-07-05 07:43] LABS: BUN/Creatinine Ratio 18.5; Phosphorus 2.2 mg/dL (2.5-4.90); Total Protein 7.6 g/dL (6.4-8.2)
[2020-07-05 07:47] LABS: INR 1.02 (0.9-1.15); Partial Thromboplastin Time 26.8 sec (23.0-31.2)
[2020-07-05 08:53] VITALS: BP 148/93
[2020-07-05] MEDS: PANTOPRAZOLE 40 MG/10 ML VIAL INJ IV SCH ×2 (09:06→22:41)
[2020-07-05] MEDS: LOSARTAN POTASSIUM 50 MG TAB PO SCH (09:06)
[2020-07-05] MEDS: ENOXAPARIN SOD 40 MG/0.4 ML SYRINGE SC SCH (09:06)
[2020-07-05] MEDS: HYDROcodone-ACET 5/325MG TAB PO PRN ×2 (09:06→18:24)
[2020-07-05] MEDS ORDERED: LIDOCAINE 2% JELLY 11ml (GLYDO) UR ONE (12:15)
[2020-07-05 13:01] VITALS: BP 130/70
[2020-07-05 17:00] VITALS: BP 142/93
[2020-07-05] MEDS ORDERED: TAMSULOSIN HYDROCHLORIDE 0.4 MG CAP PO SCH (18:00)
[2020-07-05] MEDS ORDERED: cefTRIAXone 1GM/50ML D5W 50 ML IV SCH (21:00)
[2020-07-05] MEDS: MORPHINE SULF INJ 2 MG/ML SYRINGE 1ML IV PRN (21:05)
[2020-07-05 22:00] VITALS: BP 104/65
[2020-07-05] MEDS: PRIMIDONE 50 MG TAB PO SCH (22:00)
[2020-07-05] MEDS: LORazepam 0.5 MG TAB PO PRN (22:34)
[2020-07-05] MEDS ORDERED: PRIM50TA27 PO (23:37)
[2020-07-06] MEDS ORDERED: PRIMIDONE 50 MG TAB PO SCH (01:15)
[2020-07-06] MEDS: MORPHINE SULF INJ 2 MG/ML SYRINGE 1ML IV PRN (01:56)
[2020-07-06 04:56] VITALS: BP 129/81
[2020-07-06] MEDS: LORazepam 0.5 MG TAB PO PRN (05:59)
[2020-07-06] MEDS: metroNIDAZOLE 500MG/100ML 100 ML IV SCH (05:59)
[2020-07-06] MEDS: SUCRALFATE 1 GM/10 ML ORAL SUSP PO SCH ×3 (05:59→17:00)
[2020-07-06 06:58] LABS: Potassium 3.2 mmol/L (3.5-5.1)
[2020-07-06 07:04] LABS: BUN/Creatinine Ratio 18.3
[2020-07-06 09:00] VITALS: BP 151/87
[2020-07-06] MEDS: ENOXAPARIN SOD 40 MG/0.4 ML SYRINGE SC SCH (09:26)
[2020-07-06] MEDS: PANTOPRAZOLE 40 MG/10 ML VIAL INJ IV SCH (09:26)
[2020-07-06] MEDS: LOSARTAN POTASSIUM 50 MG TAB PO SCH (09:26)
[2020-07-06 12:39] VITALS: BP 119/77
[2020-07-06] MEDS ORDERED: PANT40TA2 PO (13:24)
[2020-07-06] MEDS ORDERED: SUCR1TAB PO (13:24)
[2020-07-06] MEDS ORDERED: POTASSIUM CHL 20 Meq TABLET PO ONE (13:30)
[2020-07-06] MEDS: ACETAMINOPHEN 325 MG TAB PO PRN (14:47)
[2020-07-06 15:46] VITALS: BP 119/77
[2020-07-06 17:00] VITALS: BP 126/70
== END 2020-07-06 17:20 | disposition home or self-care (01) | DRG 725 ==
LOC: ER 11:37 → TELE 11:38 → TELE-EAST 23:20
PROVIDERS: ADMIT Hospitalist; ATTEND Internal Medicine
PROC: 05HY33Z Insertion of Infusion Device into Upper Vein, Percutaneous Approach (ICD-10-PCS; principal; 2020-07-04)
DX: N40.1 Benign prostatic hyperplasia with lower urinary tract symptoms (principal); N17.0 Acute kidney failure with tubular necrosis; R65.10 Systemic inflammatory response syndrome (SIRS) of non-infectious origin without acute organ dysfunction; I16.9 Hypertensive crisis, unspecified; F11.20 Opioid dependence, uncomplicated; N13.8 Other obstructive and reflux uropathy; K29.00 Acute gastritis without bleeding; N20.0 Calculus of kidney; K29.50 Unspecified chronic gastritis without bleeding; K52.9 Noninfective gastroenteritis and colitis, unspecified; N18.31 Chronic kidney disease, stage 3a; G89.4 Chronic pain syndrome; F12.90 Cannabis use, unspecified, uncomplicated; N28.1 Cyst of kidney, acquired; K44.9 Diaphragmatic hernia without obstruction or gangrene; N32.0 Bladder-neck obstruction; E87.6 Hypokalemia; I12.9 Hypertensive chronic kidney disease with stage 1 through stage 4 chronic kidney disease, or unspecified chronic kidney disease; R33.8 Other retention of urine; Z53.29 Procedure and treatment not carried out because of patient's decision for other reasons; Z20.822 Contact with and (suspected) exposure to COVID-19; Z82.49 Family history of ischemic heart disease and other diseases of the circulatory system; Z87.11 Personal history of peptic ulcer disease; Z90.49 Acquired absence of other specified parts of digestive tract; Z71.51 Drug abuse counseling and surveillance of drug abuser
CPT/HCPCS: 36415; 71045; 74176; 80048; 80053; 80061; 80307; 81001; 82150; 82306; 83036; 83605; 83690; 83735; 83970; 84100; 84154; 84155; 84165; 84443; 84484; 85025; 85610; 85730; 87040; 87086; 87426; 93005; 96365; 96366; 96367; 96375; C9113; G0378; J0696; J2405; J2543; J3490

== ENCOUNTER 2020-10-10 05:54 | Inpatient (IN) | payer OTHER ==
[~2020-10-10] VITALS: Ht 172.7 cm; Wt 78.2 kg
[~2020-10-10 05:54] MED LIST changes: +LOSA-69 PO; +OXYC15TA48 PO; -OXYC30TA50 PO; +PANT40TA2 PO; +PRIM50TA27 PO; +SUCR1TAB PO; +TAMS0.4C36 PO; +[UNRECOGNIZED DRUG - CODE] PO
[2020-10-10] MEDS ORDERED: FAMOTIDINE (10MG/ML) 2ML VL IV ONE (06:15)
[2020-10-10] MEDS ORDERED: ONDANSETRON HCL 4 MG/2 ML VIAL IV ONE (06:15)
[2020-10-10] MEDS ORDERED: SODIUM CHLORIDE 0.9% 1,000 ML IV ONE (06:45)
[2020-10-10] MEDS ORDERED: PANTOPRAZOLE 40 MG/10 ML VIAL INJ IV ONE (06:45)
[2020-10-10 07:04] LABS: Basophils # (auto) 0 10 ^3/uL (0-0.2); Basophils % (auto) 0.9 % (0.0-2.0); Eosinophils # (auto) 0.4 10 ^3/uL (0-0.8); Hematocrit 43.3 % (41.0-53.0); Lymphocytes # (auto) 1.8 10 ^3/uL (0.4-5.4); Lymphocytes % (auto) 32.8 % (10.0-50.0); Mean Corpuscular Hemoglobin 30.5 pg (28.0-32.0); Mean Corpuscular Hgb Conc. 34.7 g/dL (32.0-36.0); Mean Corpuscular Volume 87.7 fL (80.0-100.0); Monocytes # (auto) 0.4 10 ^3/uL (0-1.3); Monocytes % (auto) 6.9 % (0.0-12.0); Neutrophils # (auto) 2.9 10 ^3/uL (1.6-8.6); Neutrophils % (auto) 52.4 % (37.0-80.0); Nucleated Red Blood Cells % 0.3 %; Platelet Count (auto) 109 10^3/uL (140-450); Red Blood Cells 4.94 10^6/uL (4.5-5.90); Red Cell Distribution Width 14.2 % (11.8-14.3); White Blood Cell 5.5 10^3/uL (4.4-10.8)
[2020-10-10 07:18] LABS: Albumin 3.4 g/dL (3.4-5.0); BUN/Creatinine Ratio 19.1; Calcium 9.7 mg/dL (8.5-10.1); Potassium 3.3 mmol/L (3.5-5.1)
[2020-10-10 07:26] LABS: Bilirubin, Total 0.8 mg/dL (0.2-1.0); Total Protein 7.5 g/dL (6.4-8.2)
[2020-10-10 08:16] LABS: Urine WBC None Seen /hpf (0 - 3)
[2020-10-10 08:25] LABS: Urine Bacteria FEW /hpf (None Seen); Urine Blood Negative /uL (Negative); Urine Mucus FEW (None Seen); Urine Specific Gravity 1.015 (1.001-1.035)
[2020-10-10] MEDS ORDERED: cefTRIAXone 1GM/50ML D5W 50 ML IV ONE (09:00)
[2020-10-10] MEDS ORDERED: POTASSIUM EFFERVESENT TAB 25 MEQ PO ONE (09:15)
[2020-10-10 09:23] LABS: Lactic Acid w/Reflex 2.7 mmol/L (0.4-2.0)
[2020-10-10] MEDS ORDERED: POTASSIUM CHL 20MEQ/100ML 100 ML IV ONE (09:45)
[2020-10-10] MEDS ORDERED: ONDANSETRON HCL 4 MG/2 ML VIAL IV PRN (09:45)
[2020-10-10] MEDS: PANTOPRAZOLE 40 MG/10 ML VIAL INJ IV SCH (10:47)
[2020-10-10] MEDS: LACTATED RINGER'S 1,000 ML IV SCH ×3 (10:47→22:18)
[2020-10-10] MEDS: HYDROmorphone HCL 2 MG/ML VL IV PRN ×3 (10:53→22:53)
[2020-10-10] MEDS: SUCRALFATE 1 GM/10 ML ORAL SUSP GT SCH ×2 (11:30→17:00)
[2020-10-10 12:47] LABS: Amylase 343 U/L (25-115); CRP High Sensitivity < 0.02 mg/dL (< 0.3); Cholesterol 142 mg/dL (< 200)
[2020-10-10 12:50] LABS: HDL Cholesterol 66 mg/dL (40-59); LDL Cholesterol 54 mg/dL (< 100); Triglycerides 134 mg/dL (< 150)
[2020-10-10 14:52] VITALS: BP 144/88
[2020-10-10] MEDS ORDERED: SUCR1TAB PO (16:06)
[2020-10-10 16:42] VITALS: BP 139/86
[2020-10-10 22:00] VITALS: BP 142/72
[2020-10-10] MEDS: DOXAZOSIN MESYL 2 MG TAB PO SCH (22:17)
[2020-10-11 05:00] VITALS: BP 145/72
[2020-10-11] MEDS: SUCRALFATE 1 GM/10 ML ORAL SUSP GT SCH ×3 (06:10→17:00)
[2020-10-11 06:18] LABS: Basophils # (auto) 0.1 10 ^3/uL (0-0.2); Basophils % (auto) 1.2 % (0.0-2.0); Eosinophils # (auto) 0.3 10 ^3/uL (0-0.8); Eosinophils % (auto) 6.9 % (0.0-7.0); Hematocrit 39.7 % (41.0-53.0); Hemoglobin 14.1 g/dL (13.5-17.5); Lymphocytes # (auto) 1.7 10 ^3/uL (0.4-5.4); Lymphocytes % (auto) 34.4 % (10.0-50.0); Mean Corpuscular Hemoglobin 30.8 pg (28.0-32.0); Mean Corpuscular Hgb Conc. 35.5 g/dL (32.0-36.0); Monocytes # (auto) 0.4 10 ^3/uL (0-1.3); Monocytes % (auto) 8.2 % (0.0-12.0); Neutrophils # (auto) 2.5 10 ^3/uL (1.6-8.6); Neutrophils % (auto) 49.3 % (37.0-80.0); Nucleated Red Blood Cells % 0.1 %; Platelet Count (auto) 103 10^3/uL (140-450); Red Blood Cells 4.57 10^6/uL (4.5-5.90); Red Cell Distribution Width 14.1 % (11.8-14.3); White Blood Cell 5.1 10^3/uL (4.4-10.8)
[2020-10-11] MEDS: HYDROmorphone HCL 2 MG/ML VL IV PRN ×3 (06:28→22:42)
[2020-10-11] MEDS: LACTATED RINGER'S 1,000 ML IV SCH ×3 (06:29→23:18)
[2020-10-11 06:36] LABS: Calcium 9.5 mg/dL (8.5-10.1); Potassium 3.7 mmol/L (3.5-5.1)
[2020-10-11 06:40] LABS: BUN/Creatinine Ratio 13.9; Total Protein 6.8 g/dL (6.4-8.2)
[2020-10-11 08:47] VITALS: BP 148/82
[2020-10-11] MEDS: PANTOPRAZOLE 40 MG/10 ML VIAL INJ IV SCH (09:35)
[2020-10-11] MEDS: HYDROcodone-ACET 5/325MG TAB PO PRN ×2 (12:33→23:51)
[2020-10-11 13:07] VITALS: BP 151/88
[2020-10-11] MEDS: DOXAZOSIN MESYL 2 MG TAB PO SCH (13:24)
[2020-10-11 16:50] VITALS: BP 149/76
[2020-10-11 22:00] VITALS: BP 167/72
[2020-10-11 22:30] VITALS: BP 148/72
[2020-10-12 05:00] VITALS: BP 145/80
[2020-10-12] MEDS: HYDROmorphone HCL 2 MG/ML VL IV PRN ×5 (05:03→23:04)
[2020-10-12 06:37] LABS: Basophils # (auto) 0 10 ^3/uL (0-0.2); Eosinophils # (auto) 0.3 10 ^3/uL (0-0.8); Eosinophils % (auto) 7.3 % (0.0-7.0); Hematocrit 41.5 % (41.0-53.0); Hemoglobin 14.5 g/dL (13.5-17.5); Lymphocytes # (auto) 1.5 10 ^3/uL (0.4-5.4); Lymphocytes % (auto) 34.8 % (10.0-50.0); Mean Corpuscular Hemoglobin 30.8 pg (28.0-32.0); Mean Corpuscular Volume 87.9 fL (80.0-100.0); Monocytes # (auto) 0.5 10 ^3/uL (0-1.3); Monocytes % (auto) 10.4 % (0.0-12.0); Neutrophils # (auto) 2.1 10 ^3/uL (1.6-8.6); Neutrophils % (auto) 46.5 % (37.0-80.0); Nucleated Red Blood Cells % 0.1 %; Platelet Count (auto) 96 10^3/uL (140-450); Red Blood Cells 4.73 10^6/uL (4.5-5.90); White Blood Cell 4.4 10^3/uL (4.4-10.8)
[2020-10-12] MEDS: SUCRALFATE 1 GM/10 ML ORAL SUSP GT SCH ×3 (06:45→18:08)
[2020-10-12 06:56] LABS: Amylase 130 U/L (25-115); Anion Gap 7 (5-15); BUN/Creatinine Ratio 12.9; Blood Urea Nitrogen 15 mg/dL (7-18); CRP High Sensitivity < 0.02 mg/dL (< 0.3); Calcium 9.6 mg/dL (8.5-10.1); Carbon Dioxide 25 mmol/L (21-32); Chloride 104 mmol/L (98-107); GFR African American 79 mL/min; GFR Non-African American 66 mL/min; Glucose 90 mg/dL (74-106); Lipase 526 U/L (73-393); Potassium 3.5 mmol/L (3.5-5.1); Sodium 136 mmol/L (136-145)
[2020-10-12 09:00] VITALS: BP 149/93
[2020-10-12] MEDS: LACTATED RINGER'S 1,000 ML IV SCH (09:45)
[2020-10-12] MEDS: PANTOPRAZOLE 40 MG/10 ML VIAL INJ IV SCH (10:04)
[2020-10-12] MEDS ORDERED: HYDROmorphone HCL 2 MG/ML VL IV PRN (11:07)
[2020-10-12] MEDS ORDERED: hydrALAZINE HCL 20 MG/ML VL IV PRN (11:15)
[2020-10-12 13:00] VITALS: BP 155/81
[2020-10-12 20:00] VITALS: BP 134/70
[2020-10-12] MEDS: HYDROcodone-ACET 5/325MG TAB PO PRN (20:43)
[2020-10-12] MEDS: DOXAZOSIN MESYL 2 MG TAB PO SCH (22:03)
[2020-10-12 22:08] VITALS: BP 153/83
[2020-10-13] MEDS: HYDROmorphone HCL 2 MG/ML VL IV PRN ×2 (04:11→13:38)
[2020-10-13 05:31] VITALS: BP 152/74
[2020-10-13] MEDS: SUCRALFATE 1 GM/10 ML ORAL SUSP GT SCH ×2 (06:47→11:30)
[2020-10-13 07:13] LABS: Basophils # (auto) 0 10 ^3/uL (0-0.2); Basophils % (auto) 0.8 % (0.0-2.0); Eosinophils # (auto) 0.4 10 ^3/uL (0-0.8); Eosinophils % (auto) 7.3 % (0.0-7.0); Hematocrit 45.6 % (41.0-53.0); Hemoglobin 15.7 g/dL (13.5-17.5); Lymphocytes % (auto) 36.8 % (10.0-50.0); Mean Corpuscular Hemoglobin 30.9 pg (28.0-32.0); Mean Corpuscular Hgb Conc. 34.5 g/dL (32.0-36.0); Mean Corpuscular Volume 89.5 fL (80.0-100.0); Monocytes # (auto) 0.6 10 ^3/uL (0-1.3); Monocytes % (auto) 11.3 % (0.0-12.0); Neutrophils # (auto) 2.4 10 ^3/uL (1.6-8.6); Neutrophils % (auto) 43.8 % (37.0-80.0); Nucleated Red Blood Cells % 0.2 %; Platelet Count (auto) 103 10^3/uL (140-450); White Blood Cell 5.5 10^3/uL (4.4-10.8)
[2020-10-13 07:33] LABS: BUN/Creatinine Ratio 14.8; Potassium 3.5 mmol/L (3.5-5.1)
[2020-10-13 08:00] VITALS: BP 147/85
[2020-10-13 09:00] VITALS: BP 142/85
[2020-10-13] MEDS: PANTOPRAZOLE 40 MG/10 ML VIAL INJ IV SCH (10:41)
[2020-10-13] MEDS ORDERED: PANC3000 PO (11:42)
[2020-10-13 13:00] VITALS: BP 161/98
[2020-10-13 14:18] VITALS: BP 148/76
[2020-10-13] MEDS ORDERED: amLODIPine BESYLATE 5 MG TAB PO ONE (14:30)
[2020-10-13 16:02] VITALS: BP 148/76
== END 2020-10-13 16:50 | disposition home or self-care (01) | DRG 440 ==
LOC: ER 05:54 → TELE 09:42 → TELE-WESTW 14:50
PROVIDERS: ADMIT Nurse Practitioner Acute Care; ATTEND Internal Medicine Pulmonary Disease
DX: K85.91 Acute pancreatitis with uninfected necrosis, unspecified (principal); K29.70 Gastritis, unspecified, without bleeding; E87.6 Hypokalemia; I10 Essential (primary) hypertension; K25.9 Gastric ulcer, unspecified as acute or chronic, without hemorrhage or perforation; D69.6 Thrombocytopenia, unspecified; G89.29 Other chronic pain; Z20.822 Contact with and (suspected) exposure to COVID-19; F12.90 Cannabis use, unspecified, uncomplicated; J45.909 Unspecified asthma, uncomplicated; Z82.49 Family history of ischemic heart disease and other diseases of the circulatory system; Z87.11 Personal history of peptic ulcer disease; Z87.442 Personal history of urinary calculi; Z90.49 Acquired absence of other specified parts of digestive tract
CPT/HCPCS: 36415; 74176; 76705; 80048; 80053; 80061; 81001; 82150; 83605; 83690; 85007; 85025; 85027; 86141; 87040; 87426; 93005; 96361; 96365; 96367; 96375; 96376; C9113; G0378; J0696; J2405; J3480

== ENCOUNTER 2020-10-24 08:40 | Inpatient (IN) | payer OTHER ==
[~2020-10-24] VITALS: Ht 175.3 cm; Wt 77.1 kg
[~2020-10-24 08:40] MED LIST changes: -LOSA-69 PO; +PANC3000 PO; -[UNRECOGNIZED DRUG - CODE] PO
[2020-10-24] MEDS ORDERED: MORPHINE SULFATE 4 MG/ML SYR/VIAL IV ONE (09:00)
[2020-10-24] MEDS ORDERED: SODIUM CHLORIDE 0.9% 1,000 ML IV ONE (09:00)
[2020-10-24] MEDS ORDERED: SODIUM CHLORIDE 0.9% 1,000 ML IVB ONE (09:00)
[2020-10-24] MEDS ORDERED: ONDANSETRON HCL 4 MG/2 ML VIAL IV ONE (09:00)
[2020-10-24 09:44] LABS: Basophils # (auto) 0 10 ^3/uL (0-0.2); Basophils % (auto) 0.8 % (0.0-2.0); Eosinophils # (auto) 0.4 10 ^3/uL (0-0.8); Eosinophils % (auto) 6.5 % (0.0-7.0); Hematocrit 47.9 % (41.0-53.0); Hemoglobin 16.2 g/dL (13.5-17.5); Lymphocytes # (auto) 1.9 10 ^3/uL (0.4-5.4); Lymphocytes % (auto) 33.7 % (10.0-50.0); Mean Corpuscular Hgb Conc. 33.9 g/dL (32.0-36.0); Mean Corpuscular Volume 88.7 fL (80.0-100.0); Monocytes # (auto) 0.3 10 ^3/uL (0-1.3); Nucleated Red Blood Cells % 0.2 %; Platelet Count (auto) 138 10^3/uL (140-450); Red Cell Distribution Width 14.5 % (11.8-14.3); White Blood Cell 5.7 10^3/uL (4.4-10.8)
[2020-10-24 10:00] LABS: Calcium 10.5 mg/dL (8.5-10.1); Potassium 3.8 mmol/L (3.5-5.1)
[2020-10-24 10:02] LABS: Lactic Acid w/Reflex 3.1 mmol/L (0.4-2.0)
[2020-10-24 10:06] LABS: BUN/Creatinine Ratio 17.7; Bilirubin, Total 0.9 mg/dL (0.2-1.0); Total Protein 8.9 g/dL (6.4-8.2)
[2020-10-24] MEDS ORDERED: metroNIDAZOLE 500MG/100ML 100 ML IV ONE (11:15)
[2020-10-24] MEDS ORDERED: cefTRIAXone 1GM/50ML D5W 50 ML IV ONE (11:15)
[2020-10-24 11:31] LABS: Urine Bacteria NONE SEEN /hpf (None Seen); Urine Blood Negative /uL (Negative); Urine Mucus FEW (None Seen); Urine Specific Gravity 1.022 (1.001-1.035); Urine WBC 1 /hpf (0 - 3)
[2020-10-24 11:35] LABS: Alcohol, Urine < 3.0 mg/dL (0-10); Barbiturate Scree,Urine NEGATIVE (NEGATIVE); Cannabinoid Screen, Urine POSITIVE (NEGATIVE)
[2020-10-24 11:44] LABS: Amphetamine Screen, Urine NEGATIVE (NEGATIVE); Benzodiazephine Screen, Urine NEGATIVE (NEGATIVE); Cocaine Screen, Urine NEGATIVE (NEGATIVE); Opiate Scree,Urine POSITIVE (NEGATIVE); Phencyclidine Screen, Urine NEGATIVE (NEGATIVE)
[2020-10-24] MEDS ORDERED: PANTOPRAZOLE 40 MG/10 ML VIAL INJ IV ONE (12:45)
[2020-10-24] MEDS ORDERED: NITROGLYCERIN 0.4 MG SL TAB SL PRN (12:45)
[2020-10-24] MEDS ORDERED: MORPHINE SULF INJ 2 MG/ML SYRINGE 1ML IV PRN (12:45)
[2020-10-24] MEDS: LACTATED RINGER'S 1,000 ML IV SCH ×2 (12:45→22:45)
[2020-10-24] MEDS: ONDANSETRON HCL 4 MG/2 ML VIAL IV PRN ×2 (13:57→18:02)
[2020-10-24] MEDS: HYDROmorphone HCL 2 MG/ML VL IV PRN ×3 (13:57→23:37)
[2020-10-24] MEDS: TAMSULOSIN HYDROCHLORIDE 0.4 MG CAP PO SCH (18:54)
[2020-10-25] MEDS: ONDANSETRON HCL 4 MG/2 ML VIAL IV PRN ×3 (06:48→16:06)
[2020-10-25] MEDS: HYDROmorphone HCL 2 MG/ML VL IV PRN ×5 (06:48→20:49)
[2020-10-25] MEDS: LABETALOL HCL 5 MG/ML 4ML SYRINGE IV PRN ×2 (09:55→12:29)
[2020-10-25] MEDS: LACTATED RINGER'S 1,000 ML IV SCH ×2 (09:57→18:45)
[2020-10-25] MEDS: PANTOPRAZOLE 40 MG/10 ML VIAL INJ IV SCH (09:57)
[2020-10-25 13:00] VITALS: BP 167/95
[2020-10-25] MEDS ORDERED: amLODIPine BESYLATE 5 MG TAB PO ONE (13:45)
[2020-10-25] MEDS: hydrALAZINE HCL 20 MG/ML VL IV PRN (14:13)
[2020-10-25 17:00] VITALS: BP 158/92
[2020-10-25] MEDS: TAMSULOSIN HYDROCHLORIDE 0.4 MG CAP PO SCH (18:00)
[2020-10-25 20:00] VITALS: BP 148/90
[2020-10-25 22:00] VITALS: BP 148/90
[2020-10-26] MEDS: ONDANSETRON HCL 4 MG/2 ML VIAL IV PRN ×2 (02:07→15:59)
[2020-10-26] MEDS: HYDROmorphone HCL 2 MG/ML VL IV PRN ×4 (02:08→13:55)
[2020-10-26] MEDS: LACTATED RINGER'S 1,000 ML IV SCH ×2 (04:01→13:57)
[2020-10-26 05:00] VITALS: BP 154/93
[2020-10-26 06:03] LABS: Basophils # (auto) 0.1 10 ^3/uL (0-0.2); Basophils % (auto) 0.6 % (0.0-2.0); Eosinophils # (auto) 0.1 10 ^3/uL (0-0.8); Eosinophils % (auto) 1.1 % (0.0-7.0); Hematocrit 43.6 % (41.0-53.0); Hemoglobin 15.6 g/dL (13.5-17.5); Lymphocytes # (auto) 1.9 10 ^3/uL (0.4-5.4); Mean Corpuscular Hemoglobin 31.2 pg (28.0-32.0); Mean Corpuscular Hgb Conc. 35.7 g/dL (32.0-36.0); Mean Corpuscular Volume 87.2 fL (80.0-100.0); Monocytes # (auto) 0.7 10 ^3/uL (0-1.3); Monocytes % (auto) 8.2 % (0.0-12.0); Neutrophils # (auto) 5.9 10 ^3/uL (1.6-8.6); Neutrophils % (auto) 68.1 % (37.0-80.0); Nucleated Red Blood Cells % 0.1 %; Platelet Count (auto) 120 10^3/uL (140-450); Red Cell Distribution Width 13.8 % (11.8-14.3); White Blood Cell 8.7 10^3/uL (4.4-10.8)
[2020-10-26 06:22] LABS: BUN/Creatinine Ratio 14.9; Calcium 9.8 mg/dL (8.5-10.1); Potassium 3.8 mmol/L (3.5-5.1)
[2020-10-26 08:00] VITALS: BP 134/86
[2020-10-26 09:00] VITALS: BP 134/86
[2020-10-26] MEDS: amLODIPine BESYLATE 5 MG TAB PO SCH (10:29)
[2020-10-26] MEDS: PANTOPRAZOLE 40 MG/10 ML VIAL INJ IV SCH (10:29)
[2020-10-26 13:00] VITALS: BP 131/80
[2020-10-26 17:00] VITALS: BP 157/89
[2020-10-26] MEDS: TAMSULOSIN HYDROCHLORIDE 0.4 MG CAP PO SCH (18:00)
[2020-10-26 22:00] VITALS: BP 160/87
[2020-10-26] MEDS ORDERED: LORazepam 0.5 MG TAB PO PRN (22:00)
[2020-10-26] MEDS ORDERED: diphenhdrAMINE HCL 25 MG CAP PO PRN (22:00)
[2020-10-26] MEDS ORDERED: ACETAMINOPHEN 325 MG TAB PO PRN (23:45)
[2020-10-27] MEDS: LACTATED RINGER'S 1,000 ML IV SCH ×2 (00:12→10:45)
[2020-10-27 05:00] VITALS: BP 123/75
[2020-10-27 06:06] LABS: Basophils # (auto) 0 10 ^3/uL (0-0.2); Basophils % (auto) 0.4 % (0.0-2.0); Eosinophils # (auto) 0.1 10 ^3/uL (0-0.8); Hematocrit 44.5 % (41.0-53.0); Hemoglobin 15.7 g/dL (13.5-17.5); Lymphocytes # (auto) 1.8 10 ^3/uL (0.4-5.4); Lymphocytes % (auto) 23.9 % (10.0-50.0); Mean Corpuscular Hemoglobin 30.6 pg (28.0-32.0); Mean Corpuscular Hgb Conc. 35.3 g/dL (32.0-36.0); Mean Corpuscular Volume 86.5 fL (80.0-100.0); Monocytes # (auto) 0.7 10 ^3/uL (0-1.3); Monocytes % (auto) 9.6 % (0.0-12.0); Neutrophils # (auto) 4.9 10 ^3/uL (1.6-8.6); Neutrophils % (auto) 65.1 % (37.0-80.0); Nucleated Red Blood Cells % 0.1 %; Platelet Count (auto) 115 10^3/uL (140-450); Red Blood Cells 5.15 10^6/uL (4.5-5.90); Red Cell Distribution Width 13.9 % (11.8-14.3); White Blood Cell 7.6 10^3/uL (4.4-10.8)
[2020-10-27 06:19] LABS: BUN/Creatinine Ratio 16.3; Calcium 9.8 mg/dL (8.5-10.1); Potassium 3.4 mmol/L (3.5-5.1)
[2020-10-27 08:00] VITALS: BP 138/79
[2020-10-27] MEDS: HYDROmorphone HCL 2 MG/ML VL IV PRN ×2 (08:05→13:23)
[2020-10-27 09:00] VITALS: BP 138/77
[2020-10-27] MEDS ORDERED: POTASSIUM EFFERVESENT TAB 25 MEQ GT ONE (10:15)
[2020-10-27] MEDS: amLODIPine BESYLATE 5 MG TAB PO SCH (10:21)
[2020-10-27] MEDS: PANTOPRAZOLE 40 MG/10 ML VIAL INJ IV SCH (10:21)
[2020-10-27 13:00] VITALS: BP 167/96
[2020-10-27] MEDS: ONDANSETRON HCL 4 MG/2 ML VIAL IV PRN (13:23)
[2020-10-27] MEDS: hydrALAZINE HCL 20 MG/ML VL IV PRN (14:00)
[2020-10-27 14:49] VITALS: BP 178/87
[2020-10-27] MEDS ORDERED: ZOLPIDEM TARTRATE 5 MG TAB PO ONE (22:00)
== END 2020-10-27 16:07 | disposition home or self-care (01) | DRG 440 ==
LOC: ER 08:40 → TELE 12:35 → TELE-CENTR 10-25 08:35
PROVIDERS: ADMIT Nurse Practitioner Acute Care; ATTEND Internal Medicine Pulmonary Disease
DX: K85.91 Acute pancreatitis with uninfected necrosis, unspecified (principal); K27.9 Peptic ulcer, site unspecified, unspecified as acute or chronic, without hemorrhage or perforation; G89.4 Chronic pain syndrome; M19.90 Unspecified osteoarthritis, unspecified site; F12.90 Cannabis use, unspecified, uncomplicated; I10 Essential (primary) hypertension; Z20.822 Contact with and (suspected) exposure to COVID-19; N40.0 Benign prostatic hyperplasia without lower urinary tract symptoms; Z79.899 Other long term (current) drug therapy; Z82.49 Family history of ischemic heart disease and other diseases of the circulatory system; Z90.49 Acquired absence of other specified parts of digestive tract
CPT/HCPCS: 36415; 74176; 80048; 80053; 80307; 81001; 82150; 82378; 83605; 83690; 84154; 84484; 85025; 86301; 87040; 87081; 87426; 93005; 96361; 96374; 96375; C9113; G0378; J0696; J2405; J3490

== ENCOUNTER 2024-09-24 16:50 | Emergency (ER) | payer OTHER ==
[~2024-09-24] VITALS: Ht 175.3 cm; Wt 82.2 kg
[~2024-09-24 16:50] MED LIST changes: +LISI20TA56 PO; +NIFE1TAB30 PO; +PANT40T PO; -TAMS0.4C36 PO; +TAMS0.4C39 PO
[2024-09-24 18:50] VITALS: BP 149/85; PULSE 71; RESP 18; TEMP 98.5; O2SAT 95
--- NOTE | 2024-09-24 19:14 | ED.PDOC ---
History of Present Illness(SKN HPI Comments PT REPORTS CYST TO RIGHT HAND X 1 MONTH, HIT IT ON WOOD DRAWER, STARTED BLEEDING, HAS NOT SINCED. APPLIED PRESSURE DRESSING TO SITE, BLEEDING CONTROLLED, PT TOLERATED WELL., DENIES NUMBNESS OR WEAKNESS OR ANY OTHER INJURY. Chief Complaint: Wound Check Time Seen by MD: 18:16 Primary Care Provider: CLAYTON History of Present Illness: Nurses Notes, Medications, Allergies Allergies: Coded Allergies: NO KNOWN ALLERGIES (Unverified , 07/04/20) Home Meds Active Scripts Nifedipine (Nifedipine Er) 60 Mg Tab, 1 TAB PO DAILY, #90 TAB 3 Refills Prov:SALENA MCCAIN MD 02/08/22 Lisinopril (Lisinopril) 20 Mg Tab, 1 TAB PO DAILY, #90 TAB 3 Refills Prov:SALENA MCCAIN MD 02/08/22 Sucralfate (Sucralfate) 1 Gm Tab, 1 GM PO Q6HR, #60 TAB Prov:SALENA MCCAIN MD 02/08/22 Pantoprazole Sodium Sesquihydr (Pantoprazole Sodium) 40 Mg Tab, 40 MG PO BID, #60 TAB Prov:SALENA MCCAIN MD 02/08/22 Pancreatic Enzymes (CREON) 3,000 Unit Cap, 3000 UNIT PO DAILY for 30 Days, #30 CAP Prov:KATHRYN NIEVES MD 10/13/20 Pantoprazole Sodium Sesquihydr (Protonix) 40 Mg Tab, 40 MG PO DAILY, #30 TAB Prov:TOI LEONARD MD 07/06/20 Reported Medications Sucralfate (Sucralfate) 1 Gm Tab, 1 GM PO BID, GM 10/10/20 Primidone (Mysoline) 50 Mg Tab, 25 MG PO HS, TAB 07/05/20 Oxycodone Hcl (Roxicodone) 15 Mg Tab, 15 MG PO BIDP 07/04/20 Tamsulosin Hcl (Tamsulosin Hcl) 0.4 Mg Cap, 0.4 MG PO DAILY 07/04/20 Doxazosin Mesylate (Doxazosin) 4 Mg Tab, 4 MG PO DAILY, TAB 07/20/18 Mode of Arrival: Ambulatory Past Medical History PAST MEDICAL HISTORY: Asthma, HTN Surgical History: Cholecystectomy Family History Family History: Reviewed,noncontributory to illness, Family hx of HTN Social History Smoker: Non-Smoker Alcohol: Denies ETOH Use Drugs: Marijuana Lives In: Home Constitutional: denies: chills, diaphoresis, fatigue, fever, malaise, sweats, weakness, others EENTM: denies: blurred vision, double vision, ear bleeding, ear discharge, ear drainage, ear pain, ear ringing, eye pain, eye redness, hearing loss, mouth pain, mouth swelling, nasal discharge, nose bleeding, nose congestion, nose pain, photophobia, tearing, throat pain, throat swelling, voice changes, others Respiratory: denies: cough, hemoptysis, orthopnea, SOB at rest, shortness of breath, SOB with excertion, stridor, wheezing, others Cardiovascular: denies: chest pain, dizzy spells, diaphoresis, Dyspnea on exert ion, edema, irregular heart beat, left arm pain, lightheadedness, palpitations, PND, syncope, others Gastrointestinal: denies: abdomen distended, abdominal pain, blood streaked bowels, constipated, diarrhea, dysphagia, difficulty swallowing, hematemesis, melena, nausea, poor appetite, poor fluid intake, rectal bleeding, rectal pain, vomiting, others Genitourinary: denies: burning, dysuria, flank pain, frequency, hematuria, incontinence, penile discharge, penile sore, pain, testicle pain, testicle swelling, urgency, others Neurological: denies: dizziness, fainting, headache, left sided numbness, left sided weakness, numbness, paresthesia, pre-existing deficit, right sided numbness, right sided weakness, seizure, speech problems, tingling, tremors, weakness, others Musculoskeletal: denies: back pain, gout, joint pain, joint swelling, muscle pain, muscle stiffness, neck pain, others Integumetry: denies: bruises, change in color, change in hair/nails, dryness, laceration, lesions, lumps (RIGHT HAND LESION DORSUM ASPECT 5TH METACARPAL), rash, wounds, others Allergic/Immunocompromised: denies: Difficulty Healing, Frequent Infections, Hi ves, Itching, others Hematologic/Lymphatic: denies: anemia, blood clots, easy bleeding, easy bruising, swollen glands, others Endocrine: denies: excessive hunger, excessive sweating, excessive thirst, excessive urination, flushing, intolerance to cold, intolerance to heat, unexplained weight gain, unexplained weight loss, others Psychiatric: denies: anxiety, bipolar disorder, depression, hopeless, panic disorder, schizophrenia, sleepless, suicidal, others Physical Exam General Appearance: No Apparent Distress, Normal HEENT: Pharynx Normal Neck: Full Range of Motion, Non-Tender Respiratory: Lungs Clear, No Respiratory Distress, Normal Breath Sounds Cardiovascular: No Edema, No Murmur, Normal Peripheral Pulses, Regular Rate/Rhythm Breast Exam: Deferred Gastrointestinal: No Organomegaly, Non Tender, Soft Genitalia: Deferred Pelvic: Deferred Rectal: Deferred Extremities: Normal capillary refill, Normal inspection, Normal range of motion, Non-tender Musculoskeletal : Apperance: Normal 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 NO NOTED ERYTHEMA OR STREAKING. STRENGTH SENSORY MOTION INTACT) Lymphatic: No Adenopathy Was a procedure done? Was a procedure done?: Yes Sedation Sedation?: No Informed consent obtained: Yes Other Procedure Procedure SURGICEL WITH PRESSURE DRESSING TO START BLEEDING OF LESION ON RIGHT HAND DORSAL ASPECT THE BASE OF THE 5TH DIGIT Indication UNCONTROLLED BLEEDING Anesthetic NONE Prep 4 BY FOURS, BETSY WRAP, AND SURGICEL Success BLEEDING STOPPED SUCCESSFULLY Informed consent obtained: Yes Risks, benefits, and alternati: Yes Notes PATIENT TOLERATED WELL WITH MINIMAL BLOOD LOSS Differential Diagnosis (INTG) Differential Diagnosis: Cellulitis, Contusion Differential Diagnosis: Abscess X-Ray, Labs, Meds, VS Vital Signs Date Time Temp Pulse Resp B/P (MAP) Pulse Ox O2 Delivery O2 Flow Rate FiO2 09/24/24 18:50 71 18 95 Room Air 09/24/24 18:50 98.5 71 18 149/85 (106) 95 98.5 09/24/24 17:11 98.4 86 18 128/77 (94) 96 98.4 X-Ray, Labs, Meds, VS Comment SEE PROCEDURE NOTE. ADVISED TO KEEP THE PRESSURE DRESSING ON FOR 48-72 HOURS. ADVISED TO FOLLOW UP WITH HIS REFERRAL TO DERMATOLOGY. FOLLOW UP IN 2-3 DAYS FOR WOUND RE-EVALUATION WITH HIS PCP. ADVISED ER RETURN PRECAUTIONS SUCH UNCONTROLLED BLEEDING OR SIGNS AND SYMPTOMS OF INFECTION. PATIENT INDICATES UNDERSTANDING AND AGREES WITH DISCHARGE PLAN OF CARE. Time of 1ST Reevaluation: 19:27 Reevaluation 1ST: Improved Time of 2ND Reevaluation: 19:28 Reevaluation 2ND: Improved Patient Education/Counseling: Diagnosis, Treatment, Prognosis, Need For Follow Up Family Education/Counseling: No Family Present Departure 1 Departure Time of Disposition: 19:28 Impression: Primary Impression: Skin lesion of hand Disposition: 01 HOME / SELF CARE / HOMELESS Condition: Stable Discharged With: Self Critical Care Note Critical Care Time?: No Stability Stability form required: MAHAMED Pennington September 24, 2024 19:14
== END 2024-09-24 19:34 | disposition home or self-care (01) ==
LOC: ER 16:55
DX: L72.9 Follicular cyst of the skin and subcutaneous tissue, unspecified (principal); J45.909 Unspecified asthma, uncomplicated; I10 Essential (primary) hypertension; F12.90 Cannabis use, unspecified, uncomplicated; Z90.49 Acquired absence of other specified parts of digestive tract; Z79.899 Other long term (current) drug therapy

== ENCOUNTER 2025-01-23 08:17 | Emergency (ER) | payer OTHER ==
[~2025-01-23] VITALS: Ht 175.3 cm; Wt 78.3 kg
[2025-01-23] MEDS ORDERED: EPINEPHrine HCL 1 MG/10 ML SYRG IV ONE (08:18)
[2025-01-23] MEDS ORDERED: ATROPINE SULF 1 MG/10ml SYR IM ONE (08:18)
--- NOTE | 2025-01-23 08:26 | ECG ---
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
--- NOTE | 2025-01-23 08:39 | ED.PDOC ---
HPI Comments 79 y/o M, with PMHx of asthma and HTN presents to the ED for CC of chest pain. Patient states, he has been experiencing substernal non-radiating chest pain sudden onset, last night (01/22/25). Patient reports, associated symptoms of a generalized headache. Patient denies shortness of breath, palpitations, nausea, or vomiting. No other associated symptoms, modifiers, recent injuries or sick contacts are present at this time. Chief Complaint: Chest Pain Time Seen by MD: 08:35 Primary Care Provider: CLAYTON Reviewed Notes: Nurses Notes, Medications, Allergies Allergies: Coded Allergies: NO KNOWN ALLERGIES (Unverified , 07/04/20) Home Meds Active Scripts Nifedipine (Nifedipine Er) 60 Mg Tab, 1 TAB PO DAILY, #90 TAB 3 Refills Prov:SALENA MCCAIN MD 02/08/22 Lisinopril (Lisinopril) 20 Mg Tab, 1 TAB PO DAILY, #90 TAB 3 Refills Prov:SALENA MCCAIN MD 02/08/22 Sucralfate (Sucralfate) 1 Gm Tab, 1 GM PO Q6HR, #60 TAB Prov:SALENA MCCAIN MD 02/08/22 Pantoprazole Sodium Sesquihydr (Pantoprazole Sodium) 40 Mg Tab, 40 MG PO BID, #60 TAB Prov:SALENA MCCAIN MD 02/08/22 Pancreatic Enzymes (CREON) 3,000 Unit Cap, 3000 UNIT PO DAILY for 30 Days, #30 CAP Prov:KATHRYN NIEVES MD 10/13/20 Pantoprazole Sodium Sesquihydr (Protonix) 40 Mg Tab, 40 MG PO DAILY, #30 TAB Prov:TOI LEONARD MD 07/06/20 Reported Medications Sucralfate (Sucralfate) 1 Gm Tab, 1 GM PO BID, GM 10/10/20 Primidone (Mysoline) 50 Mg Tab, 25 MG PO HS, TAB 07/05/20 Oxycodone Hcl (Roxicodone) 15 Mg Tab, 15 MG PO BIDP 07/04/20 Tamsulosin Hcl (Tamsulosin Hcl) 0.4 Mg Cap, 0.4 MG PO DAILY 07/04/20 Doxazosin Mesylate (Doxazosin) 4 Mg Tab, 4 MG PO DAILY, TAB 07/20/18 Information Source: Patient Mode of Arrival: Ambulatory Severity: Moderate Timing: Hours Duration: Since onset Prehospital treatment: None Location: Substernal Radiation: No Radiation Onset: At Rest Cardiac Risk Factors: HTN PE Risk Factors: None History of: None Modifying Factors: Nothing Associated Signs and Symptoms: None Past Medical History PAST MEDICAL HISTORY: Asthma, HTN Surgical History: Cholecystectomy Family History Family History: Reviewed,noncontributory to illness, Family hx of HTN Social History Smoker: Non-Smoker Alcohol: Denies ETOH Use Drugs: Marijuana Lives In: Home Constitutional: denies: chills, diaphoresis, fatigue, fever, malaise, sweats, weakness, others EENTM: denies: blurred vision, double vision, ear bleeding, ear discharge, ear drainage, ear pain, ear ringing, eye pain, eye redness, hearing loss, mouth pain, mouth swelling, nasal discharge, nose bleeding, nose congestion, nose pain, photophobia, tearing, throat pain, throat swelling, voice changes, others Respiratory: denies: cough, hemoptysis, orthopnea, SOB at rest, shortness of breath, SOB with excertion, stridor, wheezing, others Cardiovascular: reports: chest pain; denies: dizzy spells, diaphoresis, Dyspnea on exertion, edema, irregular heart beat, left arm pain, lightheadedness, palpitations, PND, syncope, others Gastrointestinal: denies: abdomen distended, abdominal pain, blood streaked bowels, constipated, diarrhea, dysphagia, difficulty swallowing, hematemesis, melena, nausea, poor appetite, poor fluid intake, rectal bleeding, rectal pain, vomiting, others Genitourinary: denies: burning, dysuria, flank pain, frequency, hematuria, incontinence, penile discharge, penile sore, pain, testicle pain, testicle swelling, urgency, others Neurological: denies: dizziness, fainting, headache, left sided numbness, left sided weakness, numbness, paresthesia, pre-existing deficit, right sided numbness, right sided weakness, seizure, speech problems, tingling, tremors, weakness, others Musculoskeletal: denies: back pain, gout, joint pain, joint swelling, muscle pain, muscle stiffness, neck pain, others Integumetry: denies: bruises, change in color, change in hair/nails, dryness, laceration, lesions, lumps, rash, wounds, others Allergic/Immunocompromised: denies: Difficulty Healing, Frequent Infections, Hives, Itching, others Hematologic/Lymphatic: denies: anemia, blood clots, easy bleeding, easy bruising, swollen glands, others Endocrine: denies: excessive hunger, excessive sweating, excessive thirst, excessive urination, flushing, intolerance to cold, intolerance to heat, unexp lained weight gain, unexplained weight loss, others Psychiatric: denies: anxiety, bipolar disorder, depression, hopeless, panic disorder, schizophrenia, sleepless, suicidal, others All Other Systems: Reviewed and Negative Physical Exam General Appearance: Moderate Distress HEENT: Normal ENT Inspection, Pharynx Normal, TMs Normal Neck: Full Range of Motion, Non-Tender, Normal, Normal Inspection Respiratory: Chest Non-Tender, Lungs Clear, No Accessory Muscle Use, No Respiratory Distress, Normal Breath Sounds Cardiovascular: No Edema, No JVD, No Murmur, No Gallop, Normal Peripheral Pulses, Regular Rate/Rhythm Breast Exam: Deferred Gastrointestinal: No Organomegaly, Non Tender, No Pulsatile Mass, Normal Bowel Sounds, Soft Genitalia: Deferred Pelvic: Deferred Rectal: Deferred Extremities: No calf tenderness, Normal capillary refill, Normal inspection, Normal range of motion, Non-tender, No pedal edema Musculoskeletal : Apperance: Normal Neurologic: Alert, compliance examiner II-XII nml as Tested, No Motor Deficits, Normal Affect, Normal Mood, No Sensory Deficits Cerebellar Function: Normal Reflexes: Normal Skin: Dry, Normal Color, Warm Peripheral Pulses: 3+ Radial (R), 3+ Radial (L) Lymphatic: No Adenopathy Was a procedure done? Was a procedure done?: No CP Differential Dx Differential Diagnosis: A-fib, A-Flutter, Angina, Anxiety / Panic Attack, Atrial Dysrhythmia, Electrolyte Disorder Differential Diagnosis: HTN Essential, HTN Accelerated Differential Diagnosis: Angina, Chest Wall Pain, Costochondritis X-Ray, Labs, Meds, VS Vital Signs Date Time Temp Pulse Resp B/P (MAP) Pulse Ox O2 Delivery O2 Flow Rate FiO2 01/23/25 09:11 66 01/23/25 08:25 98.8 73 16 154/89 92 98.8 01/23/25 08:21 69 Lab Test 01/23/25 10:17 01/23/25 08:41 Range/Units Troponin I High Sensitivity Pending 80 *H </=54 ng/L White Blood Count 5.7 4.4-10.8 10^3/uL Red Blood Count 4.96 4.5-5.90 10^6/uL Hemoglobin 14.5 13.5-17.5 g/dL Hematocrit 42.5 41.0-53.0 % Mean Corpuscular Volume 85.8 80.0-100.0 fL Mean Corpuscular Hemoglobin 29.2 28.0-32.0 pg Mean Corpuscular Hemoglobin Concent 34.0 32.0-36.0 g/dL Red Cell Distribution Width 14.4 H 11.8-14.3 % Platelet Count 99 L 140-450 10^3/uL Mean Platelet Volume 10.6 6.9-10.8 fL Neutrophils (%) (Auto) 53.1 37.0-80.0 % Lymphocytes (%) (Auto) 35.1 10.0-50.0 % Monocytes (%) (Auto) 7.5 0.0-12.0 % Eosinophils (%) (Auto) 3.8 0.0-7.0 % Basophils (%) (Auto) 0.5 0.0-2.0 % Neutrophils # (Auto) 3.0 1.6-8.6 10 ^3/uL Lymphocytes # (Auto) 2.0 0.4-5.4 10 ^3/uL Monocytes # (Auto) 0.4 0-1.3 10 ^3/uL Eosinophils # (Auto) 0.2 0-0.8 10 ^3/uL Basophils # (Auto) 0 0-0.2 10 ^3/uL Nucleated Red Blood Cells 0.4 % Sodium Level 141 136-145 mmol/L Potassium Level 3.5 3.5-5.1 mmol/L Chloride Level 108 H 98-107 mmol/L Carbon Dioxide Level 21 20-31 mmol/L Anion Gap 12 5-15 Blood Urea Nitrogen 23 9-23 mg/dL Creatinine 1.45 H 0.700-1.30 mg/dL Glomerular Filtration Rate Calc 50 >90 mL/min BUN/Creatinine Ratio 15.9 10.0-20.0 Serum Glucose 119 H 74-106 mg/dL Calcium Level 9.6 8.7-10.4 mg/dL Patient alert. Came in because of chest pain. Cardiac marker elevated. Vitals stable. Was given Lovenox. EKG does show old changes. Blood pressure slightly elevated. Was given nitro. Was given aspirin. Explained to the patient. Continue monitoring. [address] [address] Ph: [phone] DIAGNOSTIC IMAGING Diagnostic Imaging Report : [id number] Signed PATIENT: ANTHONY GARCIA ACCT: [id number] UNIT: [id number] : 1945 LOC: ER ROOM / BED: / AGE / SEX: 79 / M ADM STATUS: REG ER SERVICE 0 ORDERING PHYSICIAN: MARJ OLEARY MD PROCEDURE(s): CXRP - CHEST PORTABLE REASON: sob ORDER NUMBER(s): [id number], ACCESSION NUMBER(s): [id number] AP portable chest CLINICAL INDICATION: sob Comparison: 02/06/2022 FINDINGS: Heart size is enlarged with left ventricular configuration. Aorta is tortuous. No infiltrates or effusions. Degenerative changes in the left shoulder joint. Right shoulder arthroplasty IMPRESSION: 1. No acute cardiopulmonary pathology ATED BY: TIMOTHY JURADO MD DICTATED DATE/TIME: 01/23/251004 SIGNED BY: TIMOTHY JURADO MD SIGNED DATE/TIME: 01/23/251004 CC: Time of 1ST Reevaluation: 09:05 Reevaluation 1ST: Unchanged Patient Education/Counseling: Diagnosis, Treatment Family Education/Counseling: No Family Present SEPSIS Sepsis Screen Date sepsis recognized/suspect: Jan 23, 2025 Time Sepsis recognized/suspect: 824 Recent Procedure: No On Antibiotic Therapy: No Respiratory Rate >20: No Heart Rate >90: No Temp<36 C (96.8 F) or >38.3 C: No SBP <90 or MAP <65 mmHG: No New Acute Mental Status Change: No Is the patient on CPAP, BIPAP,: No Physician Orders Troponin-I Hs (01/23/25 09:24) Troponin-I Hs (01/23/25 11:24) Electrocardigram (01/23/25 11:24) Chest Portable (01/23/25 09:11) Urinalysis (01/23/25 09:11) Aspirin Tablet (01/23/25 11:00) Nitroglycerin Sublingual (Ntrostat Subli (01/23/25 11:00) Vital Signs Date Time Temp Pulse Resp B/P (MAP) Pulse Ox O2 Delivery O2 Flow Rate FiO2 01/23/25 09:11 66 01/23/25 08:25 98.8 73 16 154/89 92 98.8 01/23/25 08:21 69 Laboratory Tests Test 01/23/25 08:41 White Blood Count 5.7 10^3/uL (4.4-10.8) Departure 1 Departure Time of Disposition: 10:51 Impression: Primary Impression: NSTEMI (non-ST elevated myocardial infarction) Additional Impression: HTN (hypertension) Qualified Codes: I10 - Essential (primary) hypertension Disposition: ADMITTED INPATIENT Admit to: Med Surg Condition: Guarded Critical Care Note Critical Care Time?: Yes (90 min-critical care time only) Stability Stability form required: No Heart Score Heart Score: Heart Score Response (Comments) Value History Slightly Suspicious 0 EKG Normal 0 Age >65 2 Risk Factors 1 or 2 risk factors 1 Troponin >3 x's Normal limit 2 Total 5 I personally scribed for MARJ OLEARY MD ([email or web address]) on 01/23/25 at 08:39. Electronically submitted by Kortney Blanchard ([email or web address]). I personally scribed for MARJ OLEARY MD ([email or web address]) on 01/23/25 at 08:56. Electronically submitted by Kortney Blanchard ([email or web address]). I personally scribed for MARJ OLEARY MD ([email or web address]) on 01/23/25 at 10:54. Electronically submitted by Kortney Blanchard ([email or web address]). I personally scribed for MARJ OLEARY MD ([email or web address]) on 01/23/25 at 10:56. Electronically submitted by Kortney Blanchard ([email or web address]). MARJ OLEARY MD Jan 23, 2025 08:39
--- NOTE | 2025-01-23 09:12 | ECG ---
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
[2025-01-23 09:53] LABS: Sodium 141 mmol/L (136-145)
[2025-01-23 09:54] LABS: Anion Gap 12 (5-15); Calcium 9.6 mg/dL (8.7-10.4); Carbon Dioxide 21 mmol/L (20-31)
[2025-01-23 09:55] LABS: Chloride 108 mmol/L (98-107); Potassium 3.5 mmol/L (3.5-5.1)
[2025-01-23 09:59] LABS: Glucose 119 mg/dL (74-106)
[2025-01-23 10:00] LABS: BUN/Creatinine Ratio 15.9 (10.0-20.0); Blood Urea Nitrogen 23 mg/dL (9-23); Hematocrit 42.5 % (41.0-53.0); Hemoglobin 14.5 g/dL (13.5-17.5); Mean Corpuscular Hemoglobin 29.2 pg (28.0-32.0); Mean Corpuscular Volume 85.8 fL (80.0-100.0); Nucleated Red Blood Cells % 0.4 %
--- NOTE | 2025-01-23 10:07 | DVH ---
AP portable chest CLINICAL INDICATION: sob Comparison: 02/06/2022 FINDINGS: Heart size is enlarged with left ventricular configuration. Aorta is tortuous. No infiltrat es or effusions. Degenerative changes in the left shoulder joint. Right shoulder arthroplasty IMPRESSION: 1. No acute cardiopulmonary pathology
[2025-01-23 10:30] VITALS: PULSE 67; RESP 20; TEMP 98.9; O2SAT 97
[2025-01-23] MEDS: ENOXAPARIN SOD 80 MG/0.8ML SYRINGE SC ONE (11:41)
[2025-01-23] MEDS: ACETAMINOPHEN 325 MG TAB PO ONE (11:42)
[2025-01-23] MEDS ORDERED: NITROGLYCERIN 0.4 MG SL TAB SL ONE (11:43)
[2025-01-23] MEDS ORDERED: ACETAMINOPHEN 325 MG TAB PO ONE (11:43)
[2025-01-23] MEDS ORDERED: ENOXAPARIN SOD 100 MG/1 ML SYRINGE SC ONE (11:44)
[2025-01-23] MEDS: NITROGLYCERIN 0.4 MG SL TAB SL ONE (11:45)
[2025-01-23 12:23] VITALS: BP 171/94; PULSE 70; RESP 18; O2SAT 95
[2025-01-23] MEDS ORDERED: ETOMIDATE (2MG/ML) 20ML VIAL IV ONE (12:47)
--- NOTE | 2025-01-23 13:32 | RESUS ---
CODE BLUE ASSESSSMENT History of Events History of Events: PATIENT WAS IN ER BED 09 WHEN PT ASKED FOR A URINAL. PT WAS URINATING WHEN HE CALLED OUT FOR A NURSE THEN WENT UNRESPONSIVE. Initial Information Date: Jan 23, 2025 (1) Time: 12:40 Location of Arrest: ER Arrest Witnessed: Yes CPR started initial time: 12:40 CPR started by whom: Hospital Staff Last seen well: 1239 Type of arrest: Cardiac, Respiratory Spontaneous Respirations: No Pulse Present: No Monitoring: ECG, Pulse Oximetry Crash Cart Opened and Supplies: Yes Airway Ventilation Breathing at Onset: Apneic Oxygen Delivery Method: Ambu-Bag Time of first Assisted Ventila: 12:40 Artificial Ventilation: Bag/Mask Intubation Time: 12:44 Intubation Size: 8.0 cuffed Intubated by: RT AGUIRRE Intubation Attempts: 1 Intubated orally: Yes Tube secured at: 24 Cricoid pressure done: No CO2 indicator used: Yes Confirmation: Auscultation Suctioning (Oral/Tracheal): No Circulation Circulation #1: Time: 12:40 Pulse Rate (adult): 0 Blood Pressure Systolic: 171 Blood Pressure Diastolic: 94 Circulation Comment: PEA Circulation #2: Time: 12:43 Pulse Rate (adult): 0 Circulation Comment: PEA Circulation #3: Time: 12:46 Circulation Comment: PEA Circulation #4: Time: 12:48 Circulation Comment: PEA Circulation #5: Time: 12:50 Circulation Comment: PEA Circulation #6: Time: 12:52 Circulation Comment: PEA Circulation #7: Time: 12:54 Circulation Comment: V-FIB Circulation #8: Time: 12:55 Circulation Comment: PEA Circulation #9: Time: 12:57 Circulation Comment: PEA Circulation #10: Time: 12:59 Circulation Comment: PEA Circulation #11: Time: 13:01 Circulation Comment: PEA Circulation #12: Time: 13:03 Circulation Comment: PEA/TOD Defibrillation Defbrillation : Time Defibrillator Applied: 12:54 EKG Rhythm: V-Fibrillation Compressions: Manual Compressions Hold/Resume: 1254 Time Defibrillator Shocked Pt.: 12:54 Defib. Joules: 120 Pulse Present: No EKG Rhythm: V-Fibrillation Procedure - IV Procedure - IV : IV start time: 12:44 IV Side: Right IV Location: Antecubital IV Catheter Type: Saline Lock IV Placed: In Hospital IV Placed by ADOLFO RIDLEY IV Gauge: 20 IV Line Care: Saline Flush Medications & Response Medications and Responses #1: Medication Time: 12:41 ADULT Medications Given ADULT: Epinephrine 1 mg Route of Administration: IV EKG Rhythm: PEA EKG Rhythm: PEA Medications and Responses #2: Medication Time: 12:44 ADULT Medications Given ADULT: Epinephrine 1 mg Route of Administration: IV EKG Rhythm: PEA EKG Rhythm: PEA Medications and Responses #3: Medication Time: 12:47 ADULT Medications Given ADULT: Epinephrine 1 mg Route of Administration: IV EKG Rhythm: PEA EKG Rhythm: PEA Medications and Responses #4: Medication Time: 12:48 ADULT Medications Given ADULT: Calcium Chloride 10 mL Route of Administration: IV EKG Rhythm: PEA EKG Rhythm: PEA Medications and Responses #5: Medication Time: 12:49 ADULT Medications Given ADULT: Sodium Bacarbinate 50 meq Route of Administration: IV EKG Rhythm: PEA EKG Rhythm: PEA Medications and Responses #6: Medication Time: 12:50 ADULT Medications Given ADULT: Epinephrine 1 mg Route of Administration: IV EKG Rhythm: PEA EKG Rhythm: PEA Comment GLUCOSE 86 Medications and Responses #7: Medication Time: 12:53 ADULT Medications Given ADULT: Epinephrine 1 mg Route of Administration: IV EKG Rhythm: PEA EKG Rhythm: PEA Medications and Responses #8: Medication Time: 12:56 ADULT Medications Given ADULT: Epinephrine 1 mg Route of Administration: IV EKG Rhythm: PEA EKG Rhythm: PEA Medications and Responses #9: Medication Time: 12:57 ADULT Medications Given ADULT: Epinephrine 1 mg, Amiodarone 300 mg Route of Administration: IV EKG Rhythm: PEA EKG Rhythm: PEA Medications and Responses #10: Medication Time: 12:59 ADULT Medications Given ADULT: Epinephrine 1 mg Route of Administration: IV EKG Rhythm: PEA EKG Rhythm: PEA Medications and Responses #11: Medication Time: 13:02 ADULT Medications Given ADULT: Epinephrine 1 mg Route of Administration: IV EKG Rhythm: PEA EKG Rhythm: PEA Pacing Pacer Pads Applied and Pacing: No Time Code Ended Time Code Ended: 13:03 Post Arrest Status: Outcome of code: Unsuccessful Patient pronounced by: Time patient pronounced: 13:03 Code Team Present: RT TIMOTHY, RT ERNIE MCKENZIE, ERT MELA, ERT LOY DOMINGO, ADOFLO ALEMAN, RN KEYANAADOLFO ZAMBRANO RN VALERIE NAVARRETE, VALERIE Jan 23, 2025 13:32
[2025-01-23 13:57] LABS: Urine Protein, UAD Negative (Negative)
[2025-01-23 14:04] LABS: Opiate Scree,Urine Neg (NEGATIVE)
[2025-01-23 14:06] LABS: Amphetamine Screen, Urine Neg (NEGATIVE); Barbiturate Scree,Urine Neg (NEGATIVE); Benzodiazephine Screen, Urine Neg (NEGATIVE); Cannabinoid Screen, Urine Neg (NEGATIVE); Cocaine Screen, Urine Neg (NEGATIVE); Phencyclidine Screen, Urine Neg (NEGATIVE)
--- NOTE | 2025-01-24 12:57 | ECG ---
[facility] Test Date: 2025-01-23 Test Time: 11:17:23 Pat Name: ANTHONY GARCIA Department: Room: Gender: M Hollock Maker: BRANDON : 1945 Requested By: MARJ OLEARY Order Number: [id number] Reading MD: Ga Negron Measurements Intervals [place] Rate: 67 P: 11 CT: 223 QRS: 2 QRSD: 88 T: 97 QT: 387 QTc: 409 Interpretive Statements Sinus rhythm Prolonged CT interval Probable LVH with secondary repol abnrm Electronically Signed On 01-26-2025 9:37:19 PDT by Ga Negron Please click the below link to view image of tracing.
== END 2025-01-23 13:06 ==
LOC: ER 08:17
DX: I21.4 Non-ST elevation (NSTEMI) myocardial infarction (principal); I10 Essential (primary) hypertension; Z90.49 Acquired absence of other specified parts of digestive tract; Z79.899 Other long term (current) drug therapy
CPT/HCPCS: 36415; 71045; 80048; 80307; 81001; 82947; 84484; 85025; 92950; 93005; 99291; 99292; J0169; J0282; J1650; 82962